=== PATIENT | female | born 1940 | race Caucasian/White ===

== ENCOUNTER 2019-07-18 16:04 | Outpatient (CLI) | payer MEDICARE, SELFPAY ==
--- NOTE | ~2019-07-18 | XR_ITS ---
EXAMINATION: XR chest 2V EXAM DATE: 07/18/2019 16:53 INDICATION: Chest heaviness, shortness of breath, congestion. Symptoms 2 months. TECHNIQUE: Frontal and lateral projections of the chest obtained and reviewed. Comparison is made to prior examination from 12/05/2012. FINDINGS: Severe chronic hyperinflation. Mild thoracic dextroscoliosis. No confluent consolidation, pneumothorax or pleural effusion suspected. There is aortic arterial sclerosis. IMPRESSION: Hyperinflation Reviewed, dictated and finalized at location A. IMPRESSION: Hyperinflation
== END 2019-07-18 16:05 | disposition home or self-care (01) ==
LOC: ANHIMG 16:13
PROVIDERS: PCP Family Medicine; Visit Provider Family Medicine
DX: R07.9 Chest pain, unspecified (principal)
CPT/HCPCS: 71046

== ENCOUNTER → 2020-04-16 13:18 | Outpatient (CLI) | payer MEDICARE, SELFPAY ==
--- NOTE | ~2020-04-16 | MM_ITS ---
EXAMINATION: MM screening [facility] BI w roderick HISTORY: Screening mammogram TECHNIQUE: Craniocaudal and mediolateral oblique 3-D tomosynthesis images were obtained and synthetic 2-D images were generated. CAD analysis was submitted and interpreted. COMPARISON: 05/09/2013, 01/03/2007 BREAST PARENCHYMAL COMPOSITION: There are scattered areas of fibroglandular density. FINDINGS: A stable intramammary lymph node is noted in the upper outer quadrant of the left breast. T here is no evidence of suspicious mass, calcification, or architectural distortion to suggest maligna ncy in either breast. There has been no suspicious interval change. IMPRESSION: 1. No mammographic evidence of malignancy. 2. Recommend routine screening mammography while the patient remains in good health. BI-RADS Category 2: Benign finding(s). Reviewed, dictated and finalized at location A. CASTER IMPRESSION: 1. No mammographic evidence of malignancy. 2. Recommend routine screening mammography while the patient remains in good he alth. BI-RADS Category 2: Benign finding(s).
--- NOTE | ~2020-04-16 | DEXA_ITS ---
Bone Density Report Name: Chikis Deal Age: 80 Sex: Female Ethnicity: White Date of : 1940 Indication: osteopenia; parental hip fracture; height loss; postmenopausal Referring Provider: HILARIO GARCIA Study: Bone densitometry was performed. Exam Date: April 16, 2020 Accession number: [id number] Bone Density: Region BMD T-score Z-score Classification AP Spine (L1-L4) 0.752 -2.7 0.0 Osteoporosis Femoral Neck (Left) 0.624 -2.0 0.3 Osteopenia Total Hip (Left) 0.868 -0.6 1.5 Normal Femoral Neck (Right) 0.631 -2.0 0.4 Osteopenia Total Hip (Right) 0.894 -0.4 1.7 Normal Total Hip Mean 0.881 -0.5 1.6 Normal World Health Organization criteria for BMD impression classify patients as: Normal (T-score at or above -1.0), Osteopenia (T-score between -1.0 and -2.5), or Osteoporosis (T-score at or below -2.5). 10-year Fracture Risk: FRAX not reported because: Some T-score for Spine Total or Hip Total or Femoral Neck at or below -2.5 Previous Exams: Region Exam Age BMD T-score BMD Change BMD Change Date g/cm2 vs Baseline vs Previous AP Spine(L1-L4) 04/16/2020 80 0.752 -2.7 -0.038* -0.038* 01/03/2007 66 0.789 -2.3 Total Hip(Left) 04/16/2020 80 0.868 -0.6 -0.038* -0.038* 01/03/2007 66 0.906 -0.3 Total Hip(Right) 04/16/2020 80 0.894 -0.4 0.003 0.003 01/03/2007 66 0.891 -0.4 *Denotes significance at 95% confidence level, LSC for AP Spine = 0.022 g/cm2, LSC for Total Hip = 0.027 g/cm2 Clinical Information Provided by Patient: Parent has had a hip fracture Has used the following medications: Vitamin D, MTV Patient maximum height was 69 Menopause Age: 49 No regular weight bearing exercise Drinks caffeinated beverages Onset of menses at age 15 Number of children 3 Impression: The patient has osteoporosis, based on the Total Spine T-score. The patient has risk factors, including: parental hip fracture. The BMD for the AP Spine(L1-L4) decreased, changing by -0.038 since the last DXA exam. The BMD for the Total Hip(Left) decreased, changing by -0.038 since the last DXA exam. Discussion: INCREASED RISK OF FRACTURE. BONE DENSITY IS UNDESIRABLY LOW AT ONE OR MORE SKELETAL SITES, CONSISTENT WITH POSTMENOPAUSAL OSTEOPOROSIS. This patient's lowest T-score meets the World Health Organization's (WHO) criteria for osteoporosis at one or more sites (T-score -2.5 or below). In untreated p
== END ==
PROVIDERS: PCP Family Medicine; Visit Provider Obstetrics & Gynecology Gynecology
DX: Z12.31 Encounter for screening mammogram for malignant neoplasm of breast (principal); Z78.0 Asymptomatic menopausal state; M81.0 Age-related osteoporosis without current pathological fracture; M85.852 Other specified disorders of bone density and structure, left thigh; M85.851 Other specified disorders of bone density and structure, right thigh
CPT/HCPCS: 77063; 77067; 77080

== ENCOUNTER → 2020-08-20 10:03 | Outpatient (CLI) | payer MEDICARE, SELFPAY ==
--- NOTE | ~2020-08-20 | XR_ITS ---
EXAMINATION: XR knee RT 3V DATE: 08/20/2020 10:30 INDICATION: Right knee pain. TECHNIQUE: 3 views of right knee were obtained. COMPARISON: None. FINDINGS: Bone alignment is normal. No fracture. There is mild tricompartmental osteoarthritis. There is a small knee joint effusion. IMPRESSION: 1. Mild right knee osteoarthritis. 2. Small right knee joint effusion. Reviewed, dictated and finalized at location A.
== END ==
PROVIDERS: Visit Provider Nurse Practitioner Family
DX: M17.11 Unilateral primary osteoarthritis, right knee (principal); M25.461 Effusion, right knee
CPT/HCPCS: 73562

== ENCOUNTER → 2021-04-24 10:59 | Outpatient (CLI) | payer MEDICARE, SELFPAY ==
--- NOTE | ~2021-04-24 | MM_ITS ---
EXAMINATION: MM screening [facility] BI w roderick HISTORY: Screening mammogram TECHNIQUE: Craniocaudal and mediolateral oblique 3-D tomosynthesis images were obtained and synthetic 2-D images were generated. CAD analysis was submitted and interpreted. COMPARISON: 04/16/2020, 05/09/2013, 01/03/2007 BREAST PARENCHYMAL COMPOSITION: There are scattered areas of fibroglandular density. FINDINGS: There is no evidence of suspicious mass, calcification, or architectural distortion to sugg est malignancy in either breast. There has been no suspicious interval change. IMPRESSION: 1. No mammographic evidence of malignancy. 2. Recommend routine screening mammography while the patient remains in good health. BI-RADS Category 1: Negative Reviewed, dictated and finalized at location A. [employer] IMPRESSION: 1. No mammographic evidence of malignancy. 2. Recommend routine screening mammography while the patient remains in good he alth. BI-RADS Category 1: Negative
== END ==
PROVIDERS: PCP Family Medicine; Visit Provider Obstetrics & Gynecology Gynecology
DX: Z12.31 Encounter for screening mammogram for malignant neoplasm of breast (principal)
CPT/HCPCS: 77063; 77067

== ENCOUNTER 2021-07-22 15:36 | Emergency (ER) | payer MEDICARE, SELFPAY ==
--- NOTE | ~2021-07-22 | XR_ITS ---
XR chest 2V DATE: 07/22/2021 16:06 INDICATION: Dizziness TECHNIQUE: PA and lateral views COMPARISON: 07/18/2019 PA and lateral chest FINDINGS: Bilateral hyperinflation. No pulmonary infiltrate or consolidation, pleural effusion or pul monary vascular congestion or pneumothorax. Heart size is within normal limits. Mild aortic arch calcification, mild aortic tortuosity. No hilar or mediastinal enlargement. Diffuse osteopenia. Thoracic scoliosis. IMPRESSION: No active cardiopulmonary disease Reviewed, dictated and finalized at location B.
[2021-07-22 15:47] VITALS: BP 185/88; PULSE 65; RESP 19; TEMP 36.9; O2SAT 98
--- NOTE | 2021-07-22 15:47 | ECG_ITS ---
Measurements Intervals [place] Rate: 59 P: 42 MA: 168 QRS: -27 QRSD: 97 T: 1 QT: 403 QTc: 400 Interpretive Statements SINUS BRADYCARDIA VOLTAGE CRITERIA FOR LVH BORDERLINE R WAVE PROGRESSION, ANTERIOR LEADS BORDERLINE ECG Electronically Signed On 07-22-2021 16:34:44 CDT by Yg Pantoja D.O.
--- NOTE | 2021-07-22 15:49 | ED.RECABL ---
HPI - Recheck/Abnormal Lab/Rx General Chief Complaint: Recheck/Abnormal Lab/Rx Stated Complaint: A-fib Time Seen by Provider: 07/22/21 15:41 Source: patient History of Present Illness HPI narrative: Patient presents with not feeling well. Reports she has been not feeling well since Wednesday short she has had increasing episodes of rapid heart rate due to her A. fib. When she gets a dizzy sensation and shortness of breath she has been using some home breathing exercises to slow her heart rate which has been effective. However she is continued did not feel well and her symptoms persisted today so she came to the ER for further evaluation. She reports her heart rate was 166 prior to come to the ER. She does not feel palpitations now but she still feels dizzy like she is having an abnormal heart rate. Reports over the past couple days she is noted night sweats denies any fevers denies any abdominal pain chest pain nausea vomiting cough or congestion Related Data Home Medications Medication Instructions Recorded Confirmed denosumab 60 mg/mL subcutaneous 60 mg SUBCUT [id number] 10/15/20 04/22/21 syringe Allergies Allergy/AdvReac Type Severity Reaction Status Date / Time codeine AdvReac Mild NAUSEA/DIZZ Verified 04/22/21 08:26 INESS Review of Systems Review of Systems: CONSTITUTIONAL: Denies fever, chills. EYES: Denies visual changes, redness, or discharge. ENT: Denies rhinorrhea, congestion, sore throat, or otalgia. CARDIOVASCULAR: Denies chest pain, palpitations, or edema. RESPIRATORY: Denies cough or dyspnea. GASTROINTESTINAL: Denies abdominal pain, nausea, vomiting, or diarrhea. GENITOURINARY: Denies dysuria or hematuria. SKIN: Denies rash or itching. MUSCULOSKELETAL: Denies back pain, joint pain, or myalgia. NEUROLOGIC: Denies headache, numbness, or focal weakness. PSYCHIATRIC: Denies anxiety or depression. 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 HEAD: Normocephalic, atraumatic. EYES: PERRLA and EOMI. ENT: Nares clear, no rhinorrhea or epistaxis. Mucous membranes moist. NECK: Supple. No masses. No JVD CHEST: Clear to auscultation. No respiratory distress. No wheezes rales or rhonchi HEART: Regular rate and rhythm. No murmur heard. Normal peripheral pulses. ABDOMEN: Soft, nontender, nondistended, normal active bowel sounds. EXTREMITIES: Normal range of motion. No edema. SKIN: Warm, dry, no rash. NEURO: No focal deficits. Alert and oriented x3. PSYCH: Normal mood and affect. Course Reevaluation(s) Reevaluation #1: Patient is feeling improved results and plan reviewed with patient. Patient comfortable outpatient plan. Case also cussed with Dr. Yancey cardiology recommended increasing metoprolol given patient's recurrent A. fib with RVR episodes and patient will follow-up in their clinic. Date: 07/22/21 Time: 18:06 Vital Signs Vital signs:
[2021-07-22 16:01] LABS: Basophils Percent Auto 0.4 % (0.2-1.2); Eosinophils Absolute Auto 0.1 K/mm3 (0-0.3); Eosinophils Percent Auto 1.5 % (0-4.4); Hematocrit 40.2 % (37.0-47.0); Immature Granulocyte Absolute 0.02 K/mm3 (0.00-0.031); Immature Granulocyte Percent A 0.3 % (0-0.5); Lymphocytes Absolute Auto 3.45 K/mm3 (0.9-3.2); Lymphocytes Percent Auto 47.3 % (18.3-44.2); Mean Corpuscular HGB Conc 34.8 g/dl (32-36); Mean Corpuscular Hemoglobin 32.6 pg (26-34); Mean Corpuscular Volume 93.5 fl (80-100); Monocytes Absolute Auto 0.4 K/mm3 (0.1-0.6); Monocytes Percent Auto 5.8 % (2.6-8.5); Neutrophils Absolute Auto 3.3 K/mm3 (1.3-6.7); Neutrophils Percent Auto 44.7 % (45.5-73.1); Platelet Count Result 241 k/mm3 (150-375); Red Cell Distribution Width 12.1 % (11.5-14.5); White Blood Count 7.3 K/mm3 (4.5-10.0)
--- NOTE | 2021-07-22 16:03 | PC.NURSE ---
Pt taken to X-Ray at this time.
[2021-07-22 16:13] LABS: Alanine Aminotransferase 12 U/L (6-35); Albumin Level 4.4 g/dL (3.5-5.1); Alkaline Phosphatase 33 U/L (38-126); Anion Gap 8 mmol/L (8-16); Aspartate Amino Transferase 28 U/L (14-36); Bilirubin,Total 0.9 mg/dL (0.2-1.3); Blood Urea Nitrogen 14 mg/dL (7-17); Calcium 9.1 mg/dL (8.4-10.2); Carbon Dioxide 24 mmol/L (22-30); Chloride 106 mmol/L (98-107); Estimated CRCL calculation 59 ml/min; Estimated Glomerular Filt Rate > 60; Glucose 91 mg/dL (65-110); Potassium 4.2 mmol/L (3.4-5.0); Sodium 138 mmol/L (137-145)
[2021-07-22 16:29] LABS: Glucose Point of Care 103 mg/dl (65-105)
[2021-07-22 17:11] LABS: SARS-CoV-2 RNA PCR Negative
[2021-07-22 17:21] LABS: Appearance Urine Clear (Clear); Bilirubin Urine Negative (Negative); Blood Urine Trace-lysed (Negative); Color Urine Yellow (Yellow); Glucose Urine UA Negative (Negative); Ketones Urine Negative (Negative); Leukocyte Esterase Ur Negative LEU/UL (Negative); Nitrate Urine Negative (Negative); Protein Urine Negative (Negative); Specific Grav Ur 1.015 (1.001-1.035); Urobilinogen Urine 0.2 mg/dL (<2.0)
[2021-07-22 17:23] LABS: Bacteria Urine Trace /hpf; WBC Urine 0-3 /hpf
[2021-07-22 17:33] LABS: Add Urine Microscopic? YES
[2021-07-22] MEDS: ACETAMINOPHEN 500 MG TABLET 1000 MG PO (18:05)
[2021-07-22 18:36] VITALS: BP 148/85; PULSE 60; RESP 20; O2SAT 98
== END 2021-07-22 18:30 | disposition home or self-care (01) ==
PROVIDERS: Emergency Provider Emergency Medicine; PCP Family Medicine
DX: R00.2 Palpitations (principal); R51.9 Headache, unspecified; Z20.822 Contact with and (suspected) exposure to COVID-19; I48.91 Unspecified atrial fibrillation; F17.210 Nicotine dependence, cigarettes, uncomplicated; Z79.01 Long term (current) use of anticoagulants; R00.1 Bradycardia, unspecified; R94.31 Abnormal electrocardiogram [ECG] [EKG]
CPT/HCPCS: 36415; 71046; 80053; 81001; 82948; 85025; 93005; 99284; A9270; C9803; U0003; U0005

== ENCOUNTER 2021-08-10 17:44 | Observation (INO) | payer MEDICARE, SELFPAY ==
[2021-08-10] VITALS (23 sets, daily range): BP systolic 120–158; BP diastolic 66–123; PULSE 85–145; RESP 15–26; TEMP 36.3–36.4; O2SAT 91–98; BMI 27.2
--- NOTE | ~2021-08-10 | XR_ITS ---
EXAMINATION: XR chest 2V 08/10/2021 18:24 INDICATION: Diaphoresis. Tachycardia. Syncope. COPD. PROCEDURE: AP portable chest COMPARISON: Comparison to multiple prior studies sequentially, with oldest reviewed study dated 10/03. FINDINGS: The lungs are clear. The lungs are hyperinflated which is consistent with, but not diagnost ic of chronic obstructive pulmonary disease. The cardiomediastinal silhouette is within normal limits . There are no pleural effusions. There is no pneumothorax suspected. There is atherosclerosis of the aorta. IMPRESSION: 1: NO ACUTE CARDIOPULMONARY DISEASE. Reviewed, dictated and finalized at location A.
--- NOTE | 2021-08-10 17:53 | ECG_ITS ---
Measurements Intervals [place] Rate: 144 P: 239 VT: 86 QRS: -44 QRSD: 99 T: 98 QT: 292 QTc: 453 Interpretive Statements ATRIAL FLUTTER/TACHYCARDIA WITH RAPID VENTRICULAR RESPONSE LEFT AXIS DEVIATION LEFT VENTRICULAR HYPERTROPHY AND ST-T CHANGE BORDERLINE R WAVE PROGRESSION, ANTERIOR LEADS ST-T WAVE ABNORMALITY IN HIGH LATERAL LEADS- CONSIDER ISCHEMIA BASELINE ARTIFACT- II, III ABNORMAL ECG Electronically Signed On 08-10-2021 20:26:27 CDT by Yg Pantoja D.O.
[2021-08-10] MEDS: METOPROLOL TARTRATE INJ 5 MG/5 ML VIAL IV PUSH (18:07)
[2021-08-10 18:08] LABS: Basophils Absolute Auto 0.1 K/mm3 (0.0-0.1); Basophils Percent Auto 0.6 % (0.2-1.2); Eosinophils Absolute Auto 0.1 K/mm3 (0-0.3); Eosinophils Percent Auto 1.1 % (0-4.4); Hemoglobin 14.5 g/dL (12.0-15.0); Immature Granulocyte Absolute 0.02 K/mm3 (0.00-0.031); Immature Granulocyte Percent A 0.2 % (0-0.5); Lymphocytes Absolute Auto 4.38 K/mm3 (0.9-3.2); Lymphocytes Percent Auto 50.1 % (18.3-44.2); Mean Corpuscular HGB Conc 33.7 g/dl (32-36); Mean Corpuscular Hemoglobin 32.4 pg (26-34); Mean Corpuscular Volume 96.2 fl (80-100); Mean Platelet Volume 9.2 fl (7.4-10.4); Monocytes Absolute Auto 0.7 K/mm3 (0.1-0.6); Monocytes Percent Auto 7.9 % (2.6-8.5); Neutrophils Absolute Auto 3.5 K/mm3 (1.3-6.7); Neutrophils Percent Auto 40.1 % (45.5-73.1); Platelet Count Result 247 k/mm3 (150-375); Red Blood Count 4.47 M/mm3 (4.2-5.4); Red Cell Distribution Width 12.5 % (11.5-14.5); White Blood Count 8.8 K/mm3 (4.5-10.0)
--- NOTE | 2021-08-10 18:11 | PC.NURSE ---
Lab called to add TSH to bloodwork in lab
--- NOTE | 2021-08-10 18:17 | ED.ARRPALP ---
HPI - Arrhythmia/Palpitations General Chief Complaint: Arrhythmia/Palpitations Stated Complaint: palpations Time Seen by Provider: 08/10/21 18:12 History of Present Illness HPI narrative: 81-year-old female presenting with lightheadedness and feeling like she might pass out, she has been diagnosed with A. fib about a year ago and her doctors have been titrating her metoprolol, she had just been told to decrease her dose. She denies any chest pain, difficulty breathing, does have a mild headache. No focal numbness or weakness. Related Data Home Medications Medication Instructions Recorded Confirmed denosumab 60 mg/mL subcutaneous 60 mg subcut [id number] 10/15/20 04/22/21 syringe (Prolia) Allergies Allergy/AdvReac Type Severity Reaction Status Date / Time codeine AdvReac Mild NAUSEA/DIZZ Verified 04/22/21 08:26 INESS Review of Systems Review of Systems: CONST: No fever. HEENT: No sore throat C/V: No chest pain but sometimes has a feeling of palpitations RESP: No difficulty breathing GI: No nausea or vomiting : No dysuria. M/S: No joint pain. SKIN: No rash. 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 EYES: EOMI, conjunctiva normal ENT: Hearing grossly intact LUNGS: Nonlabored breathing. HEART: Irregularly irregular and tachycardic ABD: No distention EXT: Normal range of motion SKIN: [No rashes or lesions.] NEURO: [Alert and oriented x 3. No gross focal sensory or strength deficits.] PSYCH: Normal affect Course Vital Signs Vital signs: Vital Signs Temperature 97.3 F L 08/10/21 17:47 Pulse Rate 134 H 08/10/21 17:47 Respiratory Rate 18 08/10/21 17:47 Blood Pressure 129/92 H 08/10/21 17:47 Pulse Oximetry 97 08/10/21 17:47 Oxygen Delivery Room Air 08/10/21 17:47 Temperature 97.3 F L 08/10/21 17:47 Pulse Rate 123 H 08/10/21 18:51 Respiratory Rate 18 08/10/21 18:01 Blood Pressure 152/119 H 08/10/21 18:01 Pulse Oximetry 94 08/10/21 18:01 Oxygen Delivery Room Air 08/10/21 17:47 MDM - Arrhythmia/Palpitations MDM Narrative Medical decision making narrative: 81-year-old female presenting with feeling of unwellness, vital signs normal for tachycardia, she is tachycardic on exam with irregularly irregular rhythm, does have A. fib with RVR on EKG, I suspect this is the likely cause, will also consider ACS/[place], much less likely PE without any chest pain or difficulty breathing. Suspect RVR possibly from dehydration versus medication dosage decreased. Patient is given IV metoprolol and oral metoprolol, as well as IV fluids with improvement of her heart rate to around 100 when she is sitting at rest, she is no longer having any symptoms, however when she becomes agitated such as talk about insurance companies, her heart rate does
[2021-08-10 18:18] LABS: Alanine Aminotransferase 14 U/L (6-35); Albumin Level 4.6 g/dL (3.5-5.1); Alkaline Phosphatase 40 U/L (38-126); Anion Gap 8 mmol/L (8-16); Aspartate Amino Transferase 27 U/L (14-36); Bilirubin,Total 0.7 mg/dL (0.2-1.3); Blood Urea Nitrogen 22 mg/dL (7-17); Calcium 9.5 mg/dL (8.4-10.2); Carbon Dioxide 25 mmol/L (22-30); Chloride 107 mmol/L (98-107); Estimated CRCL calculation 54 ml/min; Estimated Glomerular Filt Rate > 60; Glucose 102 mg/dL (65-110); Lipase 159 U/L (23-300); Sodium 140 mmol/L (137-145)
[2021-08-10 18:19] LABS: INR 1.1
[2021-08-10 18:20] LABS: Partial Thromboplastin Time 30.2 SECONDS (22.3-36.8)
[2021-08-10 18:29] LABS: Troponin I < 0.012 ng/mL (0.000-0.034)
[2021-08-10] MEDS: METOPROLOL TARTRATE 50 MG TAB PO (18:51)
[2021-08-10] MEDS: LACTATED RINGERS 1,000 ML 999 ML IV CONT (19:50)
--- NOTE | 2021-08-10 20:02 | PM.IMHP ---
H&P: HPI History of Present Illness Date/Time: 08/10/21 20:02 Chief Complaint: Fast heart rate, almost passed out Narrative: 81-year-old female with past medical history COPD, hypothyroidism, hypertension, dyslipidemia, urge urinary incontinence and bladder prolapse who presented to the ER with fast heart rate and near syncope. The patient reports that she has had intermittent issues with AFib RVR for the last year. Her last episode was earlier this month when she came to the ER in her metoprolol at that time was increased to 50 mg q.12 hours on July 22. However, she was feeling extremely fatigued all the time and she contact the nurse practitioner at the information systems security analyst office and her morning metoprolol was decreased back down to 25 mg last week. She states that she was doing good until earlier today when she was visiting family in [place] at which time she began feeling palpitations. She checked her heart rate on monitor and her heart rate was ranging anywhere from 150 down to 35. She reported that when her heart rate was at its highest she did feel almost as if she was going to pass out. She reported that things started to get dark. They decided at that time to drive back from [place]. She did have a couple of episodes of feeling clammy and sweaty. She reports some chronic shortness of breath due to her history of COPD. She denies any increased shortness of breath from baseline. She has not had any changes in her chronic cough. She states that she started having a cough ever she was placed on oxybutynin. She also developed new the GERD at that time. She reports that she gets GERD frequently when she lays down and has a burning sensation in her chest and up into her throat. Her nonproductive cough seemed to worsen at that time as well. But has remained stable. She denies any chest pain. She denies any orthopnea or paroxysmal nocturnal dyspnea. She has received her COVID vaccines and 1 booster. She is due for her next booster. She denies any recent ill contacts. She has been taking her metoprolol as directed 25 in the morning and 50 at night. She continues on her home Eliquis. She has chronic urinary frequency. She reports that the oxybutynin did did help with some of her nocturia. But she still has bladder prolapse and often has to push her bladder back in. Her completion manager has discussed a pessary with her. The patient thinks that she is going to proceed with a pessary in the near future so that she can get off the oxybutynin. Patient does not want any medications added for her heartburn. Review of Systems Review of Systems: 12 systems were reviewed with pertinent positives and negatives per HPI. Except as documented in the HPI, all other systems were reviewed and are negative. [facility] Past Medical History Medical History (Updated 08/10/21 @ 23:20 by Jocelyne Valdez DO) Cataract of right eye Maturing Chronic diastolic heart failure Last outpatient echo EF 60-65%, mild concentric left ventricular hypertrophy, impaired diastolic relaxation grade 1, mild mitral valve regurgitation, mild tricuspid regurgitation mild pulmonary regurgitation Essential hypertension Hyperlipidemia Hypothyroidism Paroxysmal atrial fibrillation Urge urinary incontinence Surgical History Surgical History (Updated 08/10/21 @ 23:20 by Joeclyne Valdez DO) History of appendectomy (~1984) History of bladder suspension procedure (~1984) History of bunionectomy of left great toe Family History Family History Father Heart disease Mother Emphysema of lung Sibling Ovarian cancer Carcinoma of colon Sibling Diabetes mellitus Bone cancer Daughter Lung cancer Daughter Cancer, metastatic Social History Social History (Updated 08/10/21 @ 23:28 by Jocelyne Valdez DO) Social History: The patient is independent activities of daily living. She is m
--- NOTE | 2021-08-10 21:06 | PC.NURSE ---
Patient care report called to CHARLES Jean in IMU. All questions answered at this time.
--- NOTE | 2021-08-10 21:28 | ADMGEN ---
This patient, Chikis Deal, was admitted to IMU Room 200-01 on 08/10/21 at 2128. Patient/family oriented to hospital policies and general routines including ID bracelet, bed and alarms, visiting hours, pain management, procedures, bathroom and other care routines, personal items, smoking policy, room service/diet, and visiting hours. Information on how to activate the Rapid Response Team has been discussed. Patient/Family are encouraged to report perceived risks to care and to ask questions if they do not understand what they are told or what they should do.
[2021-08-10 22:14] LABS: Troponin I < 0.012 ng/mL (0.000-0.034)
[2021-08-11] VITALS (11 sets, daily range): BP systolic 96–139; BP diastolic 61–69; PULSE 58–88; RESP 16–20; TEMP 36.5–37; O2SAT 95–100
[2021-08-11] MEDS: lisinopriL 10 MG TABLET PO (00:04)
[2021-08-11] MEDS: PRAVASTATIN SODIUM 20 MG TABLET PO (00:04)
[2021-08-11] MEDS: APIXABAN 5 MG TABLET PO ×2 (00:04→08:40)
[2021-08-11 00:14] LABS: Troponin I < 0.012 ng/mL (0.000-0.034)
--- NOTE | 2021-08-11 04:41 | ECG_ITS ---
Measurements Intervals [place] Rate: 60 P: 50 AL: 172 QRS: -26 QRSD: 83 T: 10 QT: 402 QTc: 404 Interpretive Statements SINUS RHYTHM DELAYED PRECORDIAL R/S TRANSITION BORDERLINE ST-T WAVE ABNORMALITY- INFERIOR LEADS BORDERLINE ECG Electronically Signed On 08-11-2021 14:05:16 CDT by Yg Pantoja D.O.
[2021-08-11] MEDS: LEVOTHYROXINE SODIUM 25 MCG TABLET PO (05:51)
[2021-08-11] MEDS: METOPROLOL TARTRATE 50 MG TAB PO (08:40)
--- NOTE | 2021-08-11 08:45 | PM.DS ---
DS: Admitting Diagnosis Discharge Date 08/11/21 0845 Admitting Diagnosis AFib RVR DS: Discharge Diagnosis Discharge Diagnosis (1) Atrial fibrillation with rapid ventricular response: Code(s): I48.91 - Unspecified atrial fibrillation Status: Acute Assessment and Plan: - The patient received 1 dose of IV Lopressor in the ER and 1 p.o. dose of 50 mg. Her heart rate for the most part his stay in the 90s to low 100s with occasional jumping up to the 110s- 120s with activity. - Although the patient stated that her pulse ox demonstrated a heart rate down at 35 at home she has had no bradycardic episodes since arrival. suspect this may have been inaccurate reading her pulse oximeter. Patient is being monitored in the IMU on telemetry. - Cardiology has been consulted for further recommendations. -The patient remains on her home Eliquis. Patient will DC back home on 50 mg of p.o. metoprolol b.i.d. DS: Summary Hospital Course Hospital Course: Patient is an 81-year-old female with a past medical history of AFib, hypertension, hyperlipidemia who presented to the ED with complaints of elevated heart rate and near-syncope. Patient stated that she knows when her heart goes into a different rhythm because she gets nauseated along with sweats and palpitations. Patient was given IV Lopressor in the ED and she converted back to sinus rhythm. Patient was admitted to IMU and was on alarm security or surveillance monitor throughout the night. Patient did state that she had recently had her medications changed due to fatigue. Cardiology was consulted and adjusted her dose back to 50 p.o. b.i.d.. Patient does follow with Dr. Guzman. Electrolytes are stable. Patient denies any symptoms at this time including chest pain, shortness of breath, nausea, vomiting, diarrhea, constipation, weakness or fatigue. Patient has been up walking around and feels great. Patient is stable for discharge per labs and vital signs. Status at Discharge Functional status at discharge: independent ambulation Overall status at discharge: patient is progressing back to baseline Time Spent with Patient Time attestation: Total time spent providing and/or coordinating discharge services: 33 minutes Time spent: Greater than 30 minutes Specific discharge activities: Diagnostic testing, chart review, developing a treatment plan, education, care coordination documentation, physical exam, result review Exam Const: General: cooperative, healthy appearing, no acute distress, well developed, alert and awake Nutritional Appearance: well nourished Orientation/consciousness: patient oriented x3 Limitations: no limitations HENMT: Head: normal to inspection Ears: hearing grossly normal bilaterally General nose exam: Normal external nose present Mouth: Yes Normal oral and palatal mucosa present, Yes lip normal and Yes tongue normal Teeth and gingiva: abnormal tooth and associated gingiva and poor dentition Eyes: General: appearance normal, both eyes and all related structures Neck: Neck: normal visual inspection, full ROM, trachea midline and supple Chest: Chest palpation & inspection: normal inspection of the chest Resp: Effort & Inspection: normal respiratory effort and able to speak in complete sentences Auscultation: clear to auscultation bilaterally Cardio: Jugular venous distension: no JVD Rate: regular rate Rhythm: regular rhythm Heart sounds: S1 normal heart sound present and S2 normal heart sound present Peripheral pulses: Peripheral pulses 2+ throughout GI: Inspection: normal to inspection GI Palp: Yes Soft to palpation and No Tenderness to palpation present (GI) Auscultation: normal bowel sounds Skin: General skin exam: normal color and no rashes or lesions noted Lesions: no lesions Rashes: no rashes Trauma: no lacerations or abrasions Wounds: no wounds Hair: normal Nails: normal Neuro: General: patient oriented x3, moves all extremities and Normal light touch and pain s
--- NOTE | 2021-08-11 09:49 | PM.CNCAR ---
Assessment and Plan Assessment and plan (1) Atrial fibrillation with rapid ventricular response: Code(s): I48.91 - Unspecified atrial fibrillation Status: Acute Assessment and Plan: Symptomatic paroxysmal atrial fibrillation with rapid ventricular response converted to sinus rhythm on metoprolol. Patient reports fatigue with metoprolol 50 mg twice daily she believes. Very lengthy discussion held with regards to alternative management strategies however rhythm control clearly should be our focus as she tolerates atrial fibrillation poorly. Discussed many options including antiarrhythmics, escalation of beta-janel, alternatives such as calcium channel janel and the relative risks and benefits with medications such as amiodarone, dronedarone, sotalol, digoxin, etc.. Patient verbalized understanding but states she did not feel like dealing with potential risks associated antiarrhythmic therapy this time nor did she desire a complete rebound put her medications. She agreed to increase metoprolol back to 50 mg twice daily and observe tolerance and potentially increase her evening metoprolol 75 mg certainly she has any recurrent atrial fibrillation. We discussed she may take an additional metoprolol should she have recurrence of AFib and observe tolerance as appropriate. She will call the office tomorrow morning set up follow-up very soon with Dr. Guzman or Dianna De La Vega, MANDEEP for further discussion based on her tolerance of present dose of metoprolol and or AFib recurrence. All questions answered to her satisfaction. Patient stable for discharge home as she is asymptomatic in sinus rhythm. We agreed additional adjustments in her medical therapy we are anticipated but are compromise was to discharge home on metoprolol tartrate 50 mg twice daily. We also discussed transition to Toprol XL which she may tolerate better although there was no guarantee in this regard. Discussed preference for shorter acting beta blockers particularly if adjustment is needed yet of tolerance a concern this is a potential consideration. Spent 55 minutes in the care of this patient at bedside including counseling/discussions, examination, chart review, medical decision-making, and documentation. (2) Chronic diastolic heart failure: Code(s): I50.32 - Chronic diastolic (congestive) heart failure Status: Acute Assessment and Plan: In patient's record, because patient denies prior known history of diagnosis of heart failure and is not currently on diuretic therapy. She is not decompensated heart failure at this time. (3) Chronic anticoagulation: Code(s): Z79.01 - extruder (current) use of anticoagulants Status: Acute Assessment and Plan: Continue systemic anticoagulation without interruption. (4) Essential hypertension: Code(s): I10 - Essential (primary) hypertension Status: Acute Assessment and Plan: Controlled. Continue medical therapy. (5) Hypothyroidism: Qualifiers: Hypothyroidism type: unspecified Qualified Code(s): E03.9 - Hypothyroidism, unspecified Code(s): E03.9 - Hypothyroidism, unspecified Status: Acute Assessment and Plan: Continue levothyroxine. TSH within normal limits. Management per primary service. History of Present Illness History of Present Illness Consult date/time: Date of service: 08/11/21 09:49 Cardiology consultation at the request of Dr. Nassar for opinion regarding atrial fibrillation with RVR Requesting physician: Yulissa Nassar MD Reason For Visit: AFIB RVR Narrative: Patient is a very pleasant 81-year-old female with a past medical history significant for hypertension, COPD, hypothyroidism, dyslipidemia and paroxysmal atrial fibrillation with rapid ventricular response followed by Dr. Guzman as an outpatient who presented with worsening complaints of palpitations and dizziness along with near-syncope. Patient states ox 1:00 p.m.
[2021-08-11 10:18] LABS: Alanine Aminotransferase 15 U/L (6-35); Alkaline Phosphatase 34 U/L (38-126); Anion Gap 8 mmol/L (8-16); Aspartate Amino Transferase 23 U/L (14-36); Bilirubin,Total 1.2 mg/dL (0.2-1.3); Blood Urea Nitrogen 17 mg/dL (7-17); Carbon Dioxide 24 mmol/L (22-30); Chloride 108 mmol/L (98-107); Estimated CRCL calculation 54 ml/min; Estimated Glomerular Filt Rate > 60; Glucose 167 mg/dL (65-110); Magnesium 1.9 mg/dL (1.6-2.3); Potassium 3.6 mmol/L (3.4-5.0); Sodium 140 mmol/L (137-145)
== END 2021-08-11 13:30 | disposition home or self-care (01) ==
LOC: ANHED 19:35 → ANHIMU 23:08
PROVIDERS: Emergency Medicine; Admitting Provider Internal Medicine; Emergency Provider Emergency Medicine; PCP Family Medicine; Visit Provider Nurse Practitioner
DX: I48.91 Unspecified atrial fibrillation (principal); R55 Syncope and collapse; I11.0 Hypertensive heart disease with heart failure; I50.32 Chronic diastolic (congestive) heart failure; J44.9 Chronic obstructive pulmonary disease, unspecified; N81.10 Cystocele, unspecified; N39.41 Urge incontinence; E03.9 Hypothyroidism, unspecified; E78.5 Hyperlipidemia, unspecified; K21.9 Gastro-esophageal reflux disease without esophagitis; Z79.01 Long term (current) use of anticoagulants; Z87.891 Personal history of nicotine dependence
CPT/HCPCS: 36415; 71046; 80053; 83690; 83735; 84443; 84484; 85025; 85610; 85730; 93005; 96361; 96374; 99285; A9270; G0378; J7120

== ENCOUNTER → 2022-01-20 07:40 | Outpatient (CLI) | payer MEDICARE, SELFPAY ==
--- NOTE | ~2022-01-20 | US_ITS ---
EXAMINATION: US abdomen complete DATE: 01/20/2022 08:33 INDICATION: Right upper quadrant pain TECHNIQUE: Multiple grayscale and Doppler ultrasound images of the abdomen were obtained. COMPARISON: None available FINDINGS: The head and body of the pancreas are normal. The pancreatic tail is obscured by bowel gas. The liver is normal with normal echogenicity and echotexture. No surface nodularity. Normal hepatope nakia flow in the main portal vein. The gallbladder is normal with no abnormal wall thickening, pericho lecystic fluid or stones. The normal common bile duct measures 3 mm. There was no sonographic Del Cid sign. The visualized portions of the aorta and inferior vena cava are normal. The right kidney measures 9.9 x 3.3 x 4.3 cm. The left kidney measures 9.4 x 4.1 x 3.1 cm. The kidney s demonstrate normal parenchymal echogenicity. There is no hydronephrosis. The spleen is normal in ap pearance and measures 10.4 cm. IMPRESSION: 1. No sonographic correlate for the patient's symptoms. Reviewed, dictated and finalized at location B. ISSIONED POLICE OFFICER
== END ==
PROVIDERS: PCP Family Medicine; Visit Provider Physician Assistant Medical
DX: R10.11 Right upper quadrant pain (principal)
CPT/HCPCS: 76700

== ENCOUNTER → 2022-05-26 10:33 | Outpatient (CLI) | payer MEDICARE, SELFPAY ==
--- NOTE | ~2022-05-26 | DEXA_ITS ---
Bone Density Report Name: ROBERT STEPHENS Age: 82 Sex: Female Ethnicity: White Date of : 1940 Indication: postmenopausal osteoporosis; monitoring treatment; parental hip fracture; height loss; Referring Provider: HILARIO GARCIA Study: Bone densitometry was performed. Exam Date: May 26, 2022 Accession number: [id number] Bone Density: Region BMD T-score Z-score Classification AP Spine (L1-L4) 0.830 -2.0 0.8 Osteopenia Femoral Neck (Left) 0.658 -1.7 0.7 Osteopenia Total Hip (Left) 0.901 -0.3 1.9 Normal Femoral Neck (Right) 0.649 -1.8 0.6 Osteopenia Total Hip (Right) 0.922 -0.2 2.1 Normal Total Hip Mean 0.912 -0.3 2.0 Normal World Health Organization criteria for BMD impression classify patients as: Normal (T-score at or above -1.0), Osteopenia (T-score between -1.0 and -2.5), or Osteoporosis (T-score at or below -2.5). 10-year Fracture Risk: FRAX not reported because: Treated for osteoporosis Previous Exams: Region Exam Age BMD T-score BMD Change BMD Change Date g/cm2 vs Baseline vs Previous AP Spine(L1-L4) 05/26/2022 82 0.830 -2.0 0.041* 0.079* 04/16/2020 80 0.752 -2.7 -0.038* -0.038* 01/03/2007 66 0.789 -2.3 Total Hip(Left) 05/26/2022 82 0.901 -0.3 -0.005 0.033* 04/16/2020 80 0.868 -0.6 -0.038* -0.038* 01/03/2007 66 0.906 -0.3 Total Hip(Right) 05/26/2022 82 0.922 -0.2 0.031* 0.028* 04/16/2020 80 0.894 -0.4 0.003 0.003 01/03/2007 66 0.891 -0.4 *Denotes significance at 95% confidence level, LSC for AP Spine = 0.022 g/cm2, LSC for Total Hip = 0.027 g/cm2 Clinical Information Provided by Patient: Parent has had a hip fracture Is being treated for osteoporosis Has used the following medications: Prolia (i.e. denosumab), Vitamin D, MTV Patient maximum height was 69 Menopause Age: 49 No regular weight bearing exercise Drinks caffeinated beverages Onset of menses at age 15 Number of children 3 Impression: The patient has low bone mass, based on the Total Spine T-score. The patient has risk factors, including: parental hip fracture. No significant bone loss was observed. Discussion: PATIENT UNDER TREATMENT WITH NO SIGNIFICANT BMD LOSS SINCE LAST EXAM. In an untreated patient, BMD typically declines with age. A lack of decline or gain is usually a sign that treatment is efficacious and fr
== END ==
PROVIDERS: PCP Family Medicine; Visit Provider Obstetrics & Gynecology Gynecology
DX: Z78.0 Asymptomatic menopausal state (principal); M85.89 Other specified disorders of bone density and structure, multiple sites
CPT/HCPCS: 77080

== ENCOUNTER → 2022-06-17 10:56 | Outpatient (CLI) | payer MEDICARE, SELFPAY ==
--- NOTE | ~2022-06-17 | MM_ITS ---
EXAMINATION: MM screening carine BI w roderick HISTORY: Screening mammogram TECHNIQUE: Craniocaudal and mediolateral oblique 3-D tomosynthesis images were obtained and synthetic 2-D images were generated. CAD analysis was submitted and interpreted. COMPARISON: April 24, 2021, April 16, 2020, May 09, 2013 bilateral screening mammogram exam inations BREAST PARENCHYMAL COMPOSITION: There are scattered areas of fibroglandular density. FINDINGS: There is no evidence of suspicious mass, calcification, or architectural distortion to sugg est malignancy in either breast. There has been no suspicious interval change. IMPRESSION: 1. No mammographic evidence of malignancy. 2. Recommend routine screening mammography in one year. BI-RADS Category 1: Negative Reviewed, dictated and finalized at location A.
== END ==
PROVIDERS: PCP Family Medicine; Visit Provider Obstetrics & Gynecology Gynecology
DX: Z12.31 Encounter for screening mammogram for malignant neoplasm of breast (principal)
CPT/HCPCS: 77063; 77067

== ENCOUNTER 2022-10-09 14:27 | Outpatient (CLI) | payer MEDICARE, SELFPAY ==
--- NOTE | ~2022-10-09 | MR_ITS ---
EXAMINATION: MR brain/brain stem wo/w con DATE: 10/09/2022 15:37 INDICATION: Dizziness and giddiness TECHNIQUE: Magnetic resonance imaging (MRI) of the brain and brainstem was performed without and with 17 mL Multihance intravenous contrast. Sequences included sagittal and axial T1-weighted SE, axial d iffusion-weighted FS SE, axial 3D SWAN, axial T2-weighted FLAIR, and axial T2-weighted FSE. Postcontr ast axial and coronal T1-weighted SE was obtained. Apparent diffusion coefficient (ADC) maps were cre ated. COMPARISON: None. FINDINGS: There are no areas of restricted diffusion to suggest acute infarction. No intracranial hemorrhage or abnormal intracranial mass lesion. Extensive scattered areas of nonspecific increased T2-weighted si gnal intensity in the cerebral white matter, predominantly involving the deep and periventricular whi te matter which is within normal limits for age and likely sequela of chronic small vessel ischemic d isease.. There are no intraparenchymal signal abnormalities seen on the other pulse sequences. The ve ntricles are symmetric and normal in size. There are no abnormal extra-axial fluid collections. Flow voids are seen in the cerebral arteries on the T2-weighted sequences consistent with their expected p atency. Mild mucosal thickening the bilateral ethmoid sinuses. Visualized orbits and soft tissues are unremarkable. There are no areas of abnormal enhancement on the post contrast images. IMPRESSION: 1. No acute intracranial process. 2. Extensive scattered periventricular predominant white matter T2 hyperintensity consistent with chr onic small vessel ischemic disease. Reviewed, dictated and finalized at location A. IMPRESSION: 1. No acute intracranial process. 2. Extensive scattered periventricular predominant white matter T2 hyperintensi ty consistent with chronic small vessel ischemic disease.
== END 2022-10-09 14:28 | disposition home or self-care (01) ==
PROVIDERS: PCP Family Medicine; Visit Provider Physician Assistant Medical
DX: R90.89 Other abnormal findings on diagnostic imaging of central nervous system (principal); R55 Syncope and collapse; I10 Essential (primary) hypertension; R26.89 Other abnormalities of gait and mobility; R42 Dizziness and giddiness
CPT/HCPCS: 70553; A9577

== ENCOUNTER → 2023-05-04 12:49 | Outpatient (CLI) | payer MEDICARE, SELFPAY ==
--- NOTE | ~2023-05-04 | XR_ITS ---
Left Knee Technique: AP and lateral views were obtained. Clinical History: Pain Findings: No fracture or dislocation is seen. Osseous alignment is anatomic. Minimal degenerative spu rring noted. Soft tissues are unremarkable. No joint effusion is seen. Impression: Minimal degenerative spurring. Reviewed, dictated and finalized at [facility]. KOUT SUPERVISOR Impression: Minimal degenerative spurring.
== END ==
PROVIDERS: PCP Nurse Practitioner Family; Visit Provider Nurse Practitioner Family
DX: M25.762 Osteophyte, left knee (principal)
CPT/HCPCS: 73560

== ENCOUNTER 2023-05-04 15:44 | Outpatient (CLI) | payer MEDICARE, SELFPAY ==
--- NOTE | ~2023-05-04 | US_ITS ---
EXAMINATION: US venous doppler [facility] DATE: 05/04/2023 16:37 INDICATION: Lower limb pain and swelling TECHNIQUE: Grayscale ultrasound images without and with compression and Doppler ultrasound images of the bilateral lower extremity veins were obtained. COMPARISON: None. FINDINGS: The visualized portions of right common femoral vein, profunda (deep) femoral vein, femoral vein, pop liteal vein, posterior tibial veins, peroneal veins, gastrocnemius vein and greater saphenous vein ou tflow are patent. The visualized portions of left common femoral vein, profunda femoral vein, femoral vein, popliteal v ein, posterior tibial veins, peroneal veins, gastrocnemius vein and greater saphenous vein outflow ar e patent. IMPRESSION: 1. No deep venous thrombosis in either lower limb. Reviewed, dictated and finalized at location A. ESS AND WELLNESS DIRECTOR
== END 2023-05-04 15:45 | disposition home or self-care (01) ==
LOC: ANHIMG 15:45
PROVIDERS: PCP Nurse Practitioner Family; Visit Provider Nurse Practitioner Family
DX: R60.0 Localized edema (principal)
CPT/HCPCS: 93970

== ENCOUNTER 2023-05-16 09:27 | Outpatient (CLI) | payer MEDICARE, SELFPAY ==
--- NOTE | ~2023-05-16 | MR_ITS ---
EXAMINATION: MR knee LT wo con DATE: 05/16/2023 09:50 INDICATION: Stiffness of unspecified knee, not elsewhere classified. Left knee injury. TECHNIQUE: Magnetic resonance imaging (MRI) of the left knee was performed without intravenous contra st. Sequences included axial PD-weighted FS FSE, coronal PD-weighted FSE and PD-weighted FS FSE, sagi ttal PD-weighted FSE, and sagittal T2-weighted FS FSE. COMPARISON: Left knee radiographs 05/04/2023 FINDINGS: Medial compartment: There is a complex tear of body and posterior horn of medial meniscus. There is full-thickness cartil age loss of tibial condyle involving the medial, central, and lateral articular surface. There is a s ubchondral insufficiency fracture of tibial condyle with subchondral sclerosis and surrounding edema- like marrow signal intensity. There is deep partial thickness cartilage loss of femoral condyle, wors t at the central and medial articular surface with mild subchondral edema-like marrow signal intensit y. Osteophytes are noted. Lateral compartment: There is a complex tear involving body and posterior horn of lateral meniscus. There is partial-thick ness cartilage loss of femoral condyle and tibial condyle, deep at the medial articular surface of ti bial condyle and posterior articular surface of femoral condyle. Osteophytes are noted. Patellofemoral compartment: There is full-thickness cartilage loss of patellar medial facet and median ridge with mild subchondra l edema-like marrow signal intensity. There is partial-thickness cartilage loss of patellar lateral f acet. There is partial-thickness cartilage loss of trochlea. There is full-thickness cartilage loss o f central trochlea. Ligaments and tendons: The anterior and posterior cruciate ligaments are normal. Medial collateral ligament is normal. There are changes of prior sprain of fibular collateral ligament characterized by increased signal intensi ty and thickening proximally. There is mild patellar tendinopathy. Fluid: There is a moderate-sized knee joint effusion. There is moderate prepatellar and superficial infrapat ellar bursitis. There is a large Baptiste's cyst. IMPRESSION: 1. Severe chondrosis of patellofemoral compartments and mild chondrosis of lateral compartment. 2. Subchondral insufficiency fracture of medial tibial condyle. 3. Complex tears of medial and lateral menisci. 4. Moderate-sized knee joint effusion. 5. Large Baptiste's cyst. Reviewed, dictated and finalized at location A. ATION ONCOLOGY NURSE IMPRESSION: 1. Severe chondrosis of patellofemoral compartments and mild chondrosis of late ral compartment. 2. Subchondral insufficiency fracture of medial tibial condyle. 3. Complex tears of medial and lateral menisci. 4. Moderate-sized knee joint effusion. 5. Large Baptiste's cyst.
== END 2023-05-16 09:28 | disposition home or self-care (01) ==
LOC: ANHIMG 09:30
PROVIDERS: PCP Nurse Practitioner Family; Visit Provider Nurse Practitioner Family
DX: M25.662 Stiffness of left knee, not elsewhere classified (principal); M25.462 Effusion, left knee; M94.262 Chondromalacia, left knee; S82.132A Displaced fracture of medial condyle of left tibia, initial encounter for closed fracture; S83.272A Complex tear of lateral meniscus, current injury, left knee, initial encounter; S83.232A Complex tear of medial meniscus, current injury, left knee, initial encounter; M71.22 Synovial cyst of popliteal space [Baker], left knee; X58.XXXA Exposure to other specified factors, initial encounter
CPT/HCPCS: 73721

== ENCOUNTER 2023-07-27 14:08 | Outpatient (CLI) | payer MEDICARE, SELFPAY ==
--- NOTE | ~2023-07-27 | MM_ITS ---
EXAMINATION: MM screening carine BI w roderick HISTORY: Screening mammogram TECHNIQUE: Craniocaudal and mediolateral oblique 3-D tomosynthesis images were obtained and synthetic 2-D images were generated. CAD analysis was submitted and interpreted. COMPARISON: June 17, 2022, April 24, 2021 bilateral screening mammogram examinations BREAST PARENCHYMAL COMPOSITION: There are scattered areas of fibroglandular density. FINDINGS: There is no evidence of suspicious mass, calcification, or architectural distortion to sugg est malignancy in either breast. There has been no suspicious interval change. IMPRESSION: 1. No mammographic evidence of malignancy. 2. Recommend routine screening mammography in one year. BI-RADS Category 1: Negative Reviewed, dictated and finalized at location A.
== END 2023-07-27 14:09 ==
PROVIDERS: PCP Family Medicine; Visit Provider Obstetrics & Gynecology Gynecology
DX: Z12.31 Encounter for screening mammogram for malignant neoplasm of breast (principal)
CPT/HCPCS: 77063; 77067

== ENCOUNTER 2024-01-05 11:20 | Outpatient (CLI) | payer MEDICARE, SELFPAY ==
--- NOTE | ~2024-01-05 | XR_ITS ---
3 VIEWS LUMBAR SPINE Ordering provider: Parker Chen NP History: . M54.30 - Sciatica, unspecified side . Comparison: None. FINDINGS: VERTEBRAL BODIES: Transitional vertebra is noted. Levoscoliosis. No visible fracture or subluxation. Degenerative changes of the spine. DISK SPACES: Narrowing of the disc L3-L4, L4-L5 and L5-S1. Multilevel facet joint disease. SOFT TISSUES: Atherosclerotic changes of the aorta. IMPRESSION: No acute osseous abnormality lumbar spine. Multilevel degenerative disc disease. Reviewed, dictated and finalized at location A.
== END 2024-01-05 11:21 | disposition home or self-care (01) ==
LOC: MICIMG 11:23
DX: M54.30 Sciatica, unspecified side (principal); M51.369 Other intervertebral disc degeneration, lumbar region without mention of lumbar back pain or lower extremity pain
CPT/HCPCS: 72100

== ENCOUNTER 2024-04-26 07:36 | Outpatient (CLI) | payer MEDICARE, SELFPAY ==
--- NOTE | ~2024-04-26 | MR_ITS ---
MRI of the lumbar spine Clinical History: Back pain, right-sided sciatica Technique: Axial T2-weighted images, and sagittal T1-weighted, T2-weighted, and T2 fat-sat images wer e acquired. COMPARISON: 09/02/2015 Findings: No acute fracture seen. There is minimal grade 1 anterolisthesis of L3 over L4. No suspicio us bone marrow signal abnormality seen. At L1-L2, there is no disc bulge or herniation. There is mild facet hypertrophy. No spinal canal sten osis or neural foraminal narrowing. At L2-L3, there is minimal disc bulge with moderate facet arthropathy. No central canal stenosis. The re is mild to moderate bilateral neural foraminal narrowing. At L3-L4, there is diffuse disc bulge with probable disc extrusion extending superiorly. There is sev ere facet arthropathy. There is severe spinal canal stenosis/thecal sac compression. There is moderat e to severe bilateral neural foraminal narrowing, left worse than right. At L4-L5, there is moderate degenerative disc narrowing. Disc bulge and severe facet arthropathy resu lt in severe spinal canal stenosis/thecal sac compression. There is moderate to advanced bilateral ne ural foraminal narrowing, left worse than right. At L5-S1, there is minimal disc bulge with mild facet arthropathy. No central canal stenosis. Neural foramina are preserved. Paravertebral soft tissues are unremarkable.. Impression: Severe degenerative spondylosis at L3-L4 and L4-L5 in particular. Please see details above. Additional mild degenerative changes, as above. Reviewed, dictated and finalized at [facility]. EGNATING HELPER Impression: Severe degenerative spondylosis at L3-L4 and L4-L5 in particular. Please see de tails above. Additional mild degenerative changes, as above.
--- OUTSIDE RECORDS SUMMARY | 2024-04-26 07:41 | XMS_ITS | Clinical Summary ---
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 Gender Identity Not on file Sexual Orientation Not on file Plan of Treatment Health Maintenance Due Date Last Done Comments DEXA Bone Density 1940 Hepatitis C Virus (HCV) Screening 1940 TdaP Immunization 1940 Pneumococcal Immunization (5 0+ years) (1 of 1 - PCV) 1989 Zoster Immunization (1 of 2) 1989 Respiratory Syncytial Virus (RSV) Immunization (Adult) (1 - 1-dose 75+ series) 2014 Influenza Immunization (#1) 2023 102 03/2019, 01/26/2019, 01/05/2017 SARS-COV-2 Immunization ( season) 2023 06/08/2020, 05/16/2020 Hepatitis B Immunization Aged Out No longer eligible based on patient's age to complete this topic Meningococcal Immunization (ACWY) Aged Out No longer eligible b ased on patient's age to complete this topic Rotavirus Immunization Aged Out No lo nger eligible based on patient's age to complete this topic
--- OUTSIDE RECORDS SUMMARY | 2024-04-26 07:41 | XMS_ITS | Referral Summary ---
Author Organization [facility] [address] Address [address] [place] [address] Care Team Providers Care Supervisor Ornamental Ironworking Name Role Phone Christopher Hernández MD Primary Care Provider + [phone] Allergies Active Allergy Reactions Criticality Noted Date Comments Codeine Medications pravastatin (PRAVACHOL) 20 mg tablet take 1 Tablet by oral route every day 0 0 6 Active multivitamin tablet tabletIndicatio ns:Vitamin Deficiency Prevention Take 1 tablet by mouth daily Active levothyroxine (SYNTHROID) 25 mcg tablet Take 1 tablet (25 mcg total) by mouth 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 before 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 [address] (PROTONIX) 40 mg EC tablet TAKE 1 TABLET(40 MG) BY MOUTH DAILY 90 tablet 4 Active apixaban (Eliquis) 5 mg tablet TAKE 1 TABLET(5 MG) BY MOUTH TWICE DAILY 180 tablet 2 4 Active lisinopriL (PRINIVIL,ZESTR IL) 40 mg tablet Take 1 tablet (40 mg total) by mouth nightly 90 tablet 6 4 Active carvediloL (COREG) 6.25 mg tablet Take 1 tablet (6.25 mg total) by mouth 2 (two) times a day with meals 60 tablet 11 4 12/15/19 25 Active flecainide (TAMBOCOR) 50 mg tablet TAKE 1 TABLET(50 MG) BY MOUTH TWICE DAILY 60 tablet 11 4 Active Active Problems No known active problems Social History Tobacco Use Types Packs/Day Years Used Date Smoking Tobacco: Former Cigarettes Smokeless Tobacco: Never Tobacco Cessation:Counseling Given: Not Answered Comments:age of [age] Alcohol Use Standard Drinks/Week Comments No 0 (1 standard drink = 0.6 oz pur e alcohol) Personal Safety Answer Date Recorded Getting School Help Needed Not on file 02/22 Comments Unknown Sex and Gender Information Value Date Recorded Sex Assigned at Not on file 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 Gender Identity Not on file Sexual Orientation Not on file Last Filed Vital Signs Vital Sign Reading Time Taken Comments Blood Pressure 154/70 12/15/2023 10:50 AM CDT Pulse 55 12/15/2023 10:50 AM CDT Temperature 36.4 C (97.5 F) 10/17/2019 9:12 AM CDT Respiratory Rate 15 09/29/2019 10:17 AM CDT Oxygen Saturation 97% 12/15/2023 10:50 AM CDT Inhaled Oxygen Concentration - - Weight 82.6 kg (182 lb) 12/15/2023 10:50 AM CDT Height 172.7 cm (5' 8 ) 12/15/2023 10:50 AM CDT Body Mass Index 27.67 12/15/2023 10:50 AM CDT Plan of Treatment Not on [place] [address] [facility] MEDICARE [facility] Care Teams Supervisor Ornamental Ironworking Relationship Specialty Start Date End Date Christopher Hernández MD PCP - General Family Medicine 08/05/21
--- OUTSIDE RECORDS SUMMARY | 2024-04-26 07:41 | XMS_ITS | Clinical Summary ---
Author Organization [facility] [address] Address [address] [place] [address] Care Team Providers Care Header Set Up Operator Name Role Phone Christopher Hernández MD Primary Care Provider + [phone] Allergies Active Allergy Reactions Criticality Noted Date Comments Codeine Medications pravastatin (PRAVACHOL) 20 mg tablet take 1 Tablet by oral route every day 0 0 6 Active multivitamin tablet tabletIndicatio ns:Vitamin Deficiency Prevention Take 1 tablet by mouth daily Active levothyroxine (SYNTHROID) 25 mcg tablet Take 1 tablet (25 mcg total) by mouth 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 buying 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 before breakfast [address] (PROTONIX) [...] Active Active Problems No known active problems Medical History Medical History Date Comments Hypertension Hypertension Hx Other Medical dyslipidemia Hx Other Medical bladder surgery Family History Medical History Relation Name Comments Other Father Unknown; Emphysema Mother Emphysema; Caus e of : Emphysema Relation Name Status Comments Father Mother (Age 85) Social History Tobacco Use Types Packs/Day Years [...] on file 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 Gender Identity Not on file Sexual Orientation Not on file Obstetrics History Last Filed Vital Signs Vital Sign Reading [...] 12/15/2023 10:50 AM CDT Plan of Treatment Health Maintenance Due Date Last Done Comments Depression Screening 1940 Osteoporosis Screening-Bone Density Scan 1940 Pneumococcal vaccine 65+ (1 of 2 - PCV) 1945 DTaP/Tdap/Td Vaccine (1 - Tdap) 1950 Hepatitis B Screening 1957 Zoster Vaccine (1 of 2) 1989 Well Visit 65+ 2004 Fall Risk Assessment 09/28/2020 09/29/2019 Influenza Vaccine (#1) 2023 01/26/2019, 2016 Insurance MEDICARE [facility] MEDICARE [facility] Care Teams Header Set Up Operator Relationship Specialty Start Date End Date Christopher Hernández MD PCP - General Family Medicine 08/05/21
--- OUTSIDE RECORDS SUMMARY | 2024-04-26 07:41 | XMS_ITS | Clinical Summary ---
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 Gender Identity Not on file Sexual Orientation Not on file Plan of Treatment Health Maintenance Due Date Last Done Comments DTAP/TDAP/TD VACCINES (1 - Tdap) 1958 PNEUMOCOCCAL VACCINE 65+ YEARS (1 of 1 - PCV) 03/19/18 90 ZOSTER VACCINE (1 of 2) 1989 OSTEOPOROSIS SCREENING 2004 RSV VACCINE (60+ or ) (1 - 1-dose 75+ series) 2014 INFLUENZA VACCINE (#1) 2023 02/02/2023 Insurance RX [employer] Member Subscriber Plan / Payer (Ef fective 2023-Present) Name:Chikis Deal Relation to Subscriber:Not on file Name:Chikis Deal Subscriber ID:Not on file Date of :1940 Payer ID:Not on file Group ID:[id number] Type:RX Commercial Address: [address] [facility] Medicare Part B
== END 2024-04-26 07:37 | disposition home or self-care (01) ==
PROVIDERS: PCP Family Medicine; Visit Provider Physician Assistant Medical
DX: M47.816 Spondylosis without myelopathy or radiculopathy, lumbar region (principal)
CPT/HCPCS: 72148

== ENCOUNTER 2024-06-04 11:53 | Inpatient (IN) | payer MEDICARE, SELFPAY ==
--- NOTE | ~2024-06-04 | CT_ITS ---
EXAMINATION: CT brain wo con DATE: 06/06/2024 10:42 INDICATION: Transient ischemic attack. New neurological symptoms. TECHNIQUE: Computed tomography (CT) of the head was performed without intravenous contrast. The mA wa s adjusted according to patient size. Iterative reconstruction technique was employed. The dose-lengt h product was 529.67 mGy-cm. COMPARISON: Head CT 06/04/2024, brain MRI 06/05/2024 FINDINGS: There is no intracranial hemorrhage, acute infarction, or abnormal intracranial mass lesion . There are scattered areas of low attenuation in the cerebral white matter. The ventricles are tamika l in size. The orbits are normal. There is mild mucosal thickening in the paranasal sinuses. The mast oid air cells are normal. IMPRESSION: 1. Stable extensive nonspecific cerebral white matter disease, which likely represents chronic small vessel ischemic disease. Reviewed, dictated and finalized at location A. IMPRESSION: 1. Stable extensive nonspecific cerebral white matter disease, which likely rep resents chronic small vessel ischemic disease.
--- NOTE | ~2024-06-04 | MR_ITS ---
MR brain/brain stem wo/w con Ordering provider: Paco Snyder MD History: 84 years Female with . TIA . Comparison: CT head performed yesterday. Technique: MRI brain was performed with and without contrast. 16 cc ProHance was given IV. FINDINGS: BONES: Normal. Disc protrusion is seen at the level of C3-C4. CRANIOCERVICAL JUNCTION: normal. PITUITARY: Normal. MAJOR INTRACRANIAL VESSELS: Normal flow void. OPTIC NERVES AND CRANIAL NERVES VII AND VIII COMPLEXES: Grossly normal. BRAIN PARENCHYMA AND CSF SPACES: Moderate nonspecific T2 white matter hyperintensities are seen in a bilateral periventricular and deep white matter distribution which are likely related to chronic isc hemic small vessel disease. Moderate diffuse cortical atrophy. The brainstem and cerebellum are tamika l. No acute or chronic intracranial hemorrhage. No extra axial fluid collections. Diffusion weighted and ADC mapping images reveal no recent ischemia. No midline shift or mass effect. PARANASAL SINUSES: Bilateral ethmoid sinus disease. Right nasal septal deviation. MASTOIDS: Normal SUPERFICIAL/SURROUNDING SOFT TISSUES: Normal. IMPRESSION: 1. No acute intracranial process. 2. No enhancing lesions seen. 3. Disc protrusion at the level of C3-C4. Reviewed, dictated and finalized at location A.
--- NOTE | ~2024-06-04 | XR_ITS ---
XR chest 1V portable DATE: 06/04/2024 15:34 INDICATION: Altered mental state TECHNIQUE: Portable upright AP chest on 06/04/2024 at 1528 hours COMPARISON: 08/10/2021 2 view chest FINDINGS: Borderline heart size. No hilar or mediastinal enlargement. Bilateral hyperinflation. No pulmonary infiltrate or consolidation, pleural effusion or pulmonary vas cular congestion or pneumothorax is detected. Osteopenia. IMPRESSION: Borderline heart size Bilateral hyperinflation No active pulmonary disease Reviewed, dictated and finalized at location A.
--- NOTE | ~2024-06-04 | CT_ITS ---
EXAMINATION: CTA brain carotid DATE: 06/04/2024 16:42 INDICATION: Left-sided headache. TECHNIQUE: Computed tomographic angiography (CTA) of the head was performed without and with 100 mL O mnipaque-350 intravenous contrast. CTA of the neck was performed with intravenous contrast. Automated exposure control and iterative reconstruction technique were employed. The dose-length product was 1 450.12 mGy-cm. Maximum intensity projection and volume rendered 3D-reconstructions were created by ricky pressley technologist on a separate workstation. COMPARISON: Brain MRI 10/09/2022 FINDINGS: HEAD CTA: There are scattered areas of low attenuation in the cerebral white matter and [place]. There i s no intracranial hemorrhage, acute infarction, or abnormal intracranial mass lesion. The ventricles are normal in size. There is mild mucosal thickening in the paranasal sinuses. The orbits are normal. The mastoid air cells are normal. Left vertebral artery is dominant. There is no significant stenosi s of basilar artery or the posterior cerebral arteries. The posterior communicating arteries are norm al. There is no significant stenosis of the intracranial internal carotid arteries or anterior or mid dle cerebral arteries. Anterior communicating artery is normal. There is no aneurysm. NECK CTA: There is mild scarring at the lung apices. There is a 4 mm nodule in left thyroid lobe, lik ian not clinically significant. There are no pathologically enlarged lymph nodes. There is moderate s tenosis of proximal left vertebral artery. There is proximal plaque in the proximal internal carotid arteries. There is 0% stenosis of the proximal right internal carotid artery relative to normal dista l artery lumen diameter (NASCET criteria). There is 0% stenosis of the proximal left internal carotid artery relative to normal distal artery lumen diameter. There is undulation of the cortes of left int ernal carotid artery, consistent with fibromuscular dysplasia. There is severe cervical spondylosis. IMPRESSION: 1. Stable extensive nonspecific cerebral white matter disease and pontine disease, which likely repre sents chronic small vessel ischemic disease. 2. No aneurysm or significant intracranial arterial stenosis. 3. 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 4. 0% stenosis of the proximal internal carotid arteries relative to normal distal artery lumen diame ters (NASCET criteria). Reviewed, dictated and finalized at location A. IMPRESSION: 1. Stable extensive nonspecific cerebral white matter disease and pontine disea se, which likely represents chronic small vessel ischemic disease. 2. No aneurysm or significant intracranial arterial stenosis. 3. 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 4. 0% stenosis of the proximal internal carotid arteries relative to normal dis nakia artery lumen diameters (NASCET criteria).
--- OUTSIDE RECORDS SUMMARY | 2024-06-04 11:55 | XMS_ITS | Clinical Summary ---
Author Organization 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
--- OUTSIDE RECORDS SUMMARY | 2024-06-04 11:55 | XMS_ITS | Clinical Summary ---
Author Organization [facility] [address] Address [address] [place] [address] Care Team Providers Care Copier Operator Name Role Phone Christopher Hernández MD Primary Care Provider + [phone] Allergies Active Allergy Reactions Criticality Noted Date Comments Codeine Medications pravastatin (PRAVACHOL) 20 mg tablet take 1 Tablet by oral route every day 0 0 6 Active multivitamin tablet tabletIndicatio ns:Vitamin Deficiency Prevention Take 1 tablet by mouth daily Active levothyroxine (SYNTHROID) 25 mcg tablet Take 1 tablet (25 mcg total) by mouth housing grant analyst before breakfast [address] (PROTONIX) [...] on file Legal Sex Female 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
--- OUTSIDE RECORDS SUMMARY | 2024-06-04 11:55 | XMS_ITS | Referral Summary ---
Author Organization [facility] [address] Address [address] [place] [address] Care Team Providers Care Crtt Name Role Phone Christopher Hernández MD Primary Care Provider + [phone] Allergies Active Allergy Reactions Criticality Noted Date Comments Codeine Medications pravastatin (PRAVACHOL) 20 mg tablet take 1 Tablet by oral route every day 0 0 6 Active multivitamin tablet tabletIndicatio ns:Vitamin Deficiency Prevention Take 1 tablet by mouth daily Active levothyroxine (SYNTHROID) 25 mcg tablet Take 1 tablet (25 mcg total) by mouth rail car repair carman before breakfast [address] (PROTONIX) [...] on file 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
--- OUTSIDE RECORDS SUMMARY | 2024-06-04 11:55 | XMS_ITS | Clinical Summary ---
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
[2024-06-04 12:15] VITALS: BP 141/75; PULSE 61; RESP 16; TEMP 36.2; O2SAT 97
--- NOTE | 2024-06-04 12:45 | ECG_ITS ---
Test Date: 2024-06-04 12:48:45 Measurements Intervals [place]ier Rate: 56 P: 47 RI: 188 QRS: -43 QRSD: 107 T: 32 QT: 427 QTc: 415 Interpretive Statements SINUS BRADYCARDIA MARKED LEFT AXIS DEVIATION [QRS AXIS < -30] VOLTAGE CRITERIA FOR LVH [MEETS CRITERIA IN ONE OF: R(aVL), S(V1), R(V5), R(V5/V6)+S(V1)] No previous ECG available for comparison Electronically Signed On 06-04-2024 13:36:45 CDT by Oneyda Henry M.D.
[2024-06-04 14:20] VITALS: BP 155/87; PULSE 58; RESP 16; O2SAT 97
--- OUTSIDE RECORDS SUMMARY | 2024-06-04 15:01 | XMS_ITS | Clinical Summary ---
Author Organization 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
--- OUTSIDE RECORDS SUMMARY | 2024-06-04 15:01 | XMS_ITS | Clinical Summary ---
Author Organization [facility] [address] Address [address] [place] [address] Care Team Providers Care Sourcing Manager Name Role Phone Christopher Hernández MD Primary Care Provider + [phone] Allergies Active Allergy Reactions Criticality Noted Date Comments Codeine Medications pravastatin (PRAVACHOL) 20 mg tablet take 1 Tablet by oral route every day 0 0 6 Active multivitamin tablet tabletIndicatio ns:Vitamin Deficiency Prevention Take 1 tablet by mouth daily Active levothyroxine (SYNTHROID) 25 mcg tablet Take 1 tablet (25 mcg total) by mouth diagnostic cardiac sonographer before breakfast [address] (PROTONIX) [...] on file 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
--- OUTSIDE RECORDS SUMMARY | 2024-06-04 15:01 | XMS_ITS | Clinical Summary ---
Author Organization [employer] [facility] Address [address] [address] Care Team Providers Care Supervisor Vendor Quality Name Role Phone Unavailable Primary Care Provider Unavailabl e Immunizations Immunization Administration Dates Next Due INFLUENZA VACCINE HIGH DOSE QUADRIVALENT 65 YR U P PF IM 02/02/2023 Social History Tobacco Use Types Packs/Day Years Used Date Smoking Tobacco: Never Assessed Comments Unknown Sex and Gender Information Value Date Recorded Sex Assigned at Not on file Legal Sex Female 3:06 PM 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 Part B
--- OUTSIDE RECORDS SUMMARY | 2024-06-04 15:01 | XMS_ITS | Referral Summary ---
Author Organization [facility] [address] Address [address] [place] [address] Care Team Providers Care Registered Client Associate Name Role Phone Christopher Hernández MD Primary Care Provider + [phone] Allergies Active Allergy Reactions Criticality Noted Date Comments Codeine Medications pravastatin (PRAVACHOL) 20 mg tablet take 1 Tablet by oral route every day 0 0 6 Active multivitamin tablet tabletIndicatio ns:Vitamin Deficiency Prevention Take 1 tablet by mouth daily Active levothyroxine (SYNTHROID) 25 mcg tablet Take 1 tablet (25 mcg total) by mouth piece marker small arms before breakfast [address] (PROTONIX) [...] on file Legal 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
--- NOTE | 2024-06-04 15:19 | ED.GENADULT ---
HPI - General Adult General Chief complaint: Dizziness Stated complaint: near syncope Time Seen by Provider: 06/04/24 14:54 History of Present Illness HPI narrative: 84-year-old female presenting to the emergency department for evaluation for an episode of left frontal headache with associated lightheaded dizziness and possible speech changes. Patient states that the symptoms lasted about 10-15 minutes. Patient states she has had increased tiredness since the episode. Family was concerned that the patient might have a subtle left-sided facial droop. Patient's face appears similar to her EMR photo at time of examination. Patient denies any prior history of CVA. High cholesterol, CHF, AFib with RVR Related Data Home Medications ?Medication ?Instructions ?Recorded ?Confirmed ?Last Taken ?Type denosumab 60 mg/mL subcutaneous 60 mg subcut [id number] 10/15/20 06/04/24 07/10/21 History syringe (Prolia) ascorbic acid (vitamin C) 1,000 mg 1 g PO DAILY 08/10/21 06/04/24 08/10/21 10:00 History tablet cholecalciferol (vitamin D3) 125 125 mcg PO HS 08/10/21 06/04/24 08/09/21 22:00 History mcg (5,000 unit) capsule [id number] 8 mg-folic 400 1 tablet PO DAILY 08/10/21 06/04/24 08/10/21 10:00 History mcg-K 50 mcg-lutein 300 mcg tablet (Centrum Silver Women) flecainide 50 mg tablet 50 mg PO Q12H 10/22/21 06/04/24 Unknown History carvedilol 6.25 mg tablet 6.25 mg PO BID 01/05/24 06/04/24 Unknown History lisinopril 20 mg tablet 40 mg PO DAILY 01/05/24 06/04/24 Unknown History finasteride 5 mg tablet 5 mg PO ONCE 01/25/24 06/04/24 Unknown History Allergies Allergy/AdvReac Type Severity Reaction Status Date / Time codeine AdvReac Mild NAUSEA/DIZZ Verified 06/04/24 14:22 INESS Review of Systems Review of Systems: All systems reviewed & are unremarkable except as noted in HPI and below PMFSH Past Medical History Medical History Overweight with body mass index (BMI) of 28 to 28.9 in adult Cataract of right eye Maturing Chronic diastolic heart failure Last outpatient echo EF 60-65%, mild concentric left ventricular hypertrophy, impaired diastolic relaxation grade 1, mild mitral valve regurgitation, mild tricuspid regurgitation mild pulmonary regurgitation Paroxysmal atrial fibrillation Urge urinary incontinence Hypothyroidism Hyperlipidemia Essential hypertension Surgical History Surgical History History of bunionectomy of right great toe History of appendectomy (~1984) History of bladder suspension procedure (~1984) Family History Family History Father Heart disease Mother Emphysema of lung Sibling Ovarian cancer Carcinoma of colon Sibling Diabetes mellitus Bone cancer Daughter Lung cancer Daughter Cancer, metastatic Social History Social History Social History: The patient is independent activities of daily living. She is to her 2nd for the last 35 years. She has 1 living son. Her youngest daughter at age 51 from metastatic cervical cancer. Her oldest daughter in December of lung cancer. Code status: Full code currently. The patient would like to discuss options with her family before making a final decision. Surrogate decision maker: Carlo Sousa (son) Smoking packs per day: 0.5 Smoking cigarettes per day: 10.0 Years smoked: 12 Smoking pack-years: 6.00 Smoking status: Former smoker Tobacco type: cigarettes Second hand tobacco smoke exposure: No Alcohol intake: current Drinks per week: 1 Alcohol use details: She drinks a glass of wine from time to time Substance use: never Substance use type: does not use Do You Feel Safe in your Home?: Yes Lack of Transportation: No Lack of Food: Never True Current Housing: I Have Housing Concerned About Future Housing: No Difficulty Paying Gas/Electric Bills: No Difficulty Paying for Meds: No Currently Unemployed: No Education: High School Diploma/GED Difficulty w/ Childcare or Family Care: No Living arrangements: with family Occupation/Education: retired 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 HEAD: normocephalic, atraumatic. EYES: PERRLA/EOMI, conjunctivae clear. NOSE: Normal no drainage EARS:TMS clear with good light reflex. THROAT: Pharynx clear, no exudate. NECK: Supple. No adenopathy, no masses. RESPIRATORY: Airway patent, respirations nonlabored. Clear to auscultation bilaterally, no rales, rhonchi, wheezing. CARDIOVASCULAR: Regular rate and rhythm without murmurs rubs or gallops. ABDOMINAL: Soft, nontender, nondistended, normal bowel sounds MUSCULOSKELETAL: Moves all extremities. Strength/ROM intact, No edema, No calf tenderness. NEURO: Alert. Cranial nerves II through XII intact. Grossly intact. NIH of 0 SKIN: Warm, dry. Normal Color Course Vital Signs Vital signs: Vital Signs Temperature 97.2 F L 06/04/24 12:15 Pulse Rate 61 06/04/24 12:15 Respiratory Rate 16 06/04/24 12:15 Blood Pressure 141/75 H 06/04/24 12:15 Pulse Oximetry 97 06/04/24 12:15 Oxygen Delivery Room Air 06/04/24 12:15 Temperature 97.2 F L 06/04/24 12:15 Pulse Rate 58 L 06/04/24 14:20 Respiratory Rate 16 06/04/24 14:20 Blood Pressure 155/87 H 06/04/24 14:20 Pulse Oximetry 97 06/04/24 14:20 Oxygen Delivery Room Air 06/04/24 12:15 Medical Decision Making [facility] Narrative Medical decision making narrative: 84-year-old female presented emergency department for evaluation for left frontal headache with possible associated speech change. Patient is asymptomatic at this time. Patient is afebrile but does have a leukocytosis of 11 with a hemoglobin of 14.3. INR is 1.2, no acute abnormalities on the patient's CMP. TSH is normal. No evidence of urinary tract infection. CTA head neck showed no acute infarct or large vessel thrombus with normal carotids. Case was discussed with Neurology and they will see the patient as consult. Case was discussed with hospitalist patient will be admitted for MRI and further TIA workup. Patient family were updated the results of the workup plan for admission. All questions concerns were addressed. Patient is on Eliquis. Differential Diagnosis Differential Diagnosis: TIA, CVA, migraine, headache, dehydration, vertigo Vital Signs Vital Signs: Vital Signs Temperature 97.2 F L 06/04/24 12:15 Pulse Rate 61 06/04/24 12:15 Respiratory Rate 16 06/04/24 12:15 Blood Pressure 141/75 H 06/04/24 12:15 Pulse Oximetry 97 06/04/24 12:15 Oxygen Delivery Room Air 06/04/24 12:15 Temperature 97.2 F L 06/04/24 12:15 Pulse Rate 58 L 06/04/24 14:20 Respiratory Rate 16 06/04/24 14:20 Blood Pressure 155/87 H 06/04/24 14:20 Pulse Oximetry 97 06/04/24 14:20 Oxygen Delivery Room Air 06/04/24 12:15 Lab Data Lab results reviewed: Yes I reviewed the patient's lab results. 06/04/24 15:44 06/04/24 15:44 Labs: Lab Results 06/04/24 06/04/24 06/04/24 Range/Units 15:43 15:44 15:44 WBC 11.0 H (4.5-10.0) K/mm3 RBC 4.32 (4.2-5.4) M/mm3 Hgb 14.3 (12.0-15.0) g/dL Hct 42.4 (37.0-47.0) % MCV 98.1 (80-100) fl MCH 33.1 (26-34) pg MCHC 33.7 (32-36) g/dl RDW 11.9 (11.5-14.5) % Plt Count 239 (150-375) k/mm3 MPV 8.7 (7.4-10.4) fl Immature Gran % (Auto) 1.2 H (0-0.5) % Neut % (Auto) 66.0 (45.5-73.1) % Lymph % (Auto) 25.7 (18.3-44.2) % Edgar % (Auto) 5.4 (2.6-8.5) % Eos % (Auto) 1.3 (0-4.4) % Baso % (Auto) 0.4 (0.2-1.2) % Lymph # (Auto) 2.81 (0.9-3.2) K/mm3 Edgar # (Auto) 0.6 (0.1-0.6) K/mm3 Eos # (Auto) 0.1 (0-0.3) K/mm3 Baso # (Auto) 0.0 (0.0-0.1) K/mm3 Abs Immat Gran (auto) 0.13 H (0.00-0.031) K/mm3 Absolute Neuts (auto) 7.2 H (1.3-6.7) K/mm3 Absolute Nucleated RBC 0.000 (0.0-0.012) K/mm3 Nucleated RBC % 0.0 (0.0-0.2) % PT 15.3 H (11.1-14.7) Seconds INR 1.2 APTT 27.7 (22.3-36.8) Seconds Sodium 140 (137-145) mmol/L Potassium 4.1 (3.4-5.0) mmol/L Chloride 103 (98-107) mmol/L Carbon Dioxide 28 (22-30) mmol/L Anion Gap 9 (4-12) mmol/L BUN 15 (7-17) mg/dL Creatinine 0.63 L (0.7-1.0) mg/dL Estim Creat Clear Calc 56 ml/min Estimated GFR > 60 (59 - ) Glucose 108 (65-110) mg/dL Calcium 9.5 (8.4-10.2) mg/dL Magnesium 2.0 Cancelled (1.6-2.3) mg/dL Total Bilirubin 0.9 (0.2-1.3) mg/dL AST 22 (14-36) U/L ALT 15 (6-35) U/L Alkaline Phosphatase 64 (38-126) U/L Total Protein 8.0 (6.3-8.2) g/dL Albumin 4.5 (3.5-5.1) g/dL TSH (Reflex) 1.660 (0.465-4.68) uIU/mL Urine Color Yellow (Yellow) Urine Appearance Clear (Clear) Urine pH 8.0 (5.0-9.0) Ur Specific [place] 1.009 (1.001-1.035) Urine Protein Negative (Negative) mg/dL Urine Glucose (UA) Negative (Negative) mg/dL Urine Ketones Negative (Negative) mg/dL Ur Blood (Man) Negative (Negative) Urine Nitrate Negative (Negative) Urine Bilirubin Negative (Negative) Urine Urobilinogen 0.2 (<2.0) mg/dL Leukocyte Esterase Rfl Negative (Negative) ESTHER/UL Imaging Data Radiologist's impression: Impressions Chest X-Ray 06/04/24 15:37 IMPRESSION: Borderline heart size Bilateral hyperinflation No active pulmonary disease Head/Neck CTA 06/04/24 16:47 IMPRESSION: 1. Stable extensive nonspecific cerebral white matter disease and pontine disease, which likely represents chronic small vessel ischemic disease. 2. No aneurysm or significant intracranial arterial stenosis. 3. 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 4. 0% stenosis of the proximal internal carotid arteries relative to normal distal artery lumen diameters (NASCET criteria). Discharge Plan Discharge Clinical Impression: Brain TIA, Frontal headache Patient Disposition: Still a Patient Condition: Stable Quality Stroke Scale Stroke Scale 1: 1a Level of consciousness: alert-0 1b Level of consciousness questions: answers both correctly-0 1c Level of consciousness commands: obeys both correctly-0 2 Best gaze: normal-0 3 Visual: no visual loss-0 4 Facial palsy: normal-0 5a Motor: left arm: no drift-0 5b Motor: right arm: no drift-0 6a Motor: left leg: no drift-0 6b Motor: right leg: no drift-0 7 Limb ataxia: absent-0 8 Sensory: normal-0 9 Best language: no aphasia-0 10 Dysarthria: normal-0 11 Extinction and inattention: no abnormality-0 Level:: 0
[2024-06-04 15:52] LABS: Basophils Percent Auto 0.4 % (0.2-1.2); Eosinophils Absolute Auto 0.1 K/mm3 (0-0.3); Eosinophils Percent Auto 1.3 % (0-4.4); Hematocrit 42.4 % (37.0-47.0); Hemoglobin 14.3 g/dL (12.0-15.0); Immature Granulocyte Absolute 0.13 K/mm3 (0.00-0.031); Immature Granulocyte Percent A 1.2 % (0-0.5); Lymphocytes Absolute Auto 2.81 K/mm3 (0.9-3.2); Lymphocytes Percent Auto 25.7 % (18.3-44.2); Mean Corpuscular HGB Conc 33.7 g/dl (32-36); Mean Corpuscular Hemoglobin 33.1 pg (26-34); Mean Corpuscular Volume 98.1 fl (80-100); Mean Platelet Volume 8.7 fl (7.4-10.4); Monocytes Absolute Auto 0.6 K/mm3 (0.1-0.6); Monocytes Percent Auto 5.4 % (2.6-8.5); Neutrophils Absolute Auto 7.2 K/mm3 (1.3-6.7); Platelet Count Result 239 k/mm3 (150-375); Red Blood Count 4.32 M/mm3 (4.2-5.4); Red Cell Distribution Width 11.9 % (11.5-14.5)
[2024-06-04 15:53] LABS: Add Urine Microscopic? NO; Appearance Urine Clear (Clear); Bilirubin Urine Negative (Negative); Blood Urine Negative (Negative); Color Urine Yellow (Yellow); Glucose Urine UA Negative (Negative); Ketones Urine Negative (Negative); Leukocyte Esterase Ur Negative LEU/UL (Negative); Nitrate Urine Negative (Negative); Protein Urine Negative (Negative); Specific Grav Ur 1.009 (1.001-1.035); Urobilinogen Urine 0.2 mg/dL (<2.0)
[2024-06-04 16:03] LABS: INR 1.2; Partial Thromboplastin Time 27.7 Seconds (22.3-36.8); Prothrombin Time 15.3 Seconds (11.1-14.7)
[2024-06-04 16:04] LABS: Alanine Aminotransferase 15 U/L (6-35); Albumin Level 4.5 g/dL (3.5-5.1); Alkaline Phosphatase 64 U/L (38-126); Anion Gap 9 mmol/L (4-12); Aspartate Amino Transferase 22 U/L (14-36); Bilirubin,Total 0.9 mg/dL (0.2-1.3); Blood Urea Nitrogen 15 mg/dL (7-17); Calcium 9.5 mg/dL (8.4-10.2); Carbon Dioxide 28 mmol/L (22-30); Chloride 103 mmol/L (98-107); Estimated CRCL calculation 56 ml/min; Estimated Glomerular Filt Rate > 60; Glucose 108 mg/dL (65-110); Potassium 4.1 mmol/L (3.4-5.0); Sodium 140 mmol/L (137-145)
--- NOTE | 2024-06-04 17:28 | P.HP_ITS ---
H&P: HPI History of Present Illness Date/Time: 06/04/24 17:28 Chief Complaint: Dizziness Narrative: 84-year-old female past medical history of hypertension, hypothyroidism, hyperlipidemia, and chronic diastolic heart failure presents the hospital for dizziness and lightheadedness. Patient states that started describe her symptoms. Earlier today she was standing in the kitchen, felt lightheaded, states that she did not have blurry vision but she felt like she was going to pass out so she sat down for a little bit, and then she went to the bedroom to lay down. She states that her symptoms lasted for about 10 minutes. She was worried she may be having a stroke so she came into the hospital. In the ED she has leukocytosis 11.0, the rest of her lab work is within normal limits, UA negative for infection, chest x-ray shows bilateral hyperinflation, CT shows Stable extensive nonspecific cerebral white matter disease and pontine disease, which likely represents chronic small vessel ischemic disease. 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 0% stenosis of the proximal internal carotid arteries relative to normal distal artery lumen diameters (NASCET criteria). EKG shows Sinus Fredrick at 65. Neurology consulted and plan for MRI tomorrow. Review of Systems Review of Systems: 12 systems were reviewed and are negativ e except for as per HPI. [facility] Past Medical History Medical History Overweight with body mass index (BMI) of 28 to 28.9 in adult Cataract of right eye Maturing Chronic diastolic heart failure Last outpatient echo EF 60-65%, mild concentric left ventricular hypertrophy, impaired diastolic relaxation grade 1, mild mitral valve regurgitation, mild tricuspid regurgitation mild pulmonary regurgitation Paroxysmal atrial fibrillation Urge urinary incontinence Hypothyroidism Hyperlipidemia Essential hypertension Surgical History Surgical History History of bunionectomy of right great toe History of appendectomy (~1984) History of bladder suspension procedure (~1984) Family History Family History Father Heart disease Mother Emphysema of lung Sibling Ovarian cancer Carcinoma of colon Sibling Diabetes mellitus Bone cancer Daughter Lung cancer Daughter Cancer, metastatic Social History Social History Social History: The patient is independent activities of daily living. She is to her 2nd for the last 35 years. She has 1 living son. Her youngest daughter at age 51 from metastatic cervical cancer. Her oldest daughter in December of lung cancer. Code status: Full code currently. The patient would like to discuss options with her family before making a final decision. Surrogate decision maker: Carlo Sousa (son) Smoking packs per day: 0.5 Smoking cigarettes per day: 10.0 Years smoked: 12 Smoking pack-years: 6.00 Smoking status: Former smoker Tobacco type: cigarettes Second hand tobacco smoke exposure: No Alcohol intake: former Drinks per week: 1 Alcohol use details: She drinks a glass of wine from time to time Substance use: never Substance use type: does not use Do You Feel Safe in your Home?: Yes Lack of Transportation: No Lack of Food: Never True Current Housing: I Have Housing Concerned About Future Housing: No Difficulty Paying Gas/Electric Bills: No Difficulty Paying for Meds: No Currently Unemployed: No Education: High School Diploma/GED Difficulty w/ Childcare or Family Care: No Living arrangements: with family Occupation/Education: retired 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 [employer] Gender identity (if verbalized by the patient): Female Spiritual care concerns: No Meds Home Medications and Allergies Home Medications ?Medication ?Instructions ?Recorded ?Confirmed ?Type apixaban 5 mg tablet (Eliquis) 5 mg PO BID #2 tabs 04/16/20 06/04/24 Rx denosumab 60 mg/mL subcutaneous 60 mg subcut [id number] 10/15/20 06/04/24 History syringe (Prolia) ascorbic acid (vitamin C) 1,000 mg 1 g PO DAILY 08/10/21 06/04/24 History tablet cholecalciferol (vitamin D3) 125 125 mcg PO HS 08/10/21 06/04/24 History mcg (5,000 unit) capsule [id number] 8 mg-folic 400 1 tablet PO DAILY 08/10/21 06/04/24 History mcg-K 50 mcg-lutein 300 mcg tablet (Centrum Silver Women) flecainide 50 mg tablet 50 mg PO Q12H 10/22/21 06/04/24 History pantoprazole 40 mg tablet,delayed 40 mg PO QAM #90 tabs 08/03/23 06/04/24 Rx release pravastatin 20 mg tablet 20 mg PO HS #90 tabs 10/29/23 06/04/24 Rx levothyroxine 25 mcg tablet See Rx Instructions .Route 11/11/23 06/04/24 Rx .COMPLEX #90 tabs carvedilol 6.25 mg tablet 6.25 mg PO BID 01/05/24 06/04/24 History lisinopril 20 mg tablet 40 mg PO DAILY 01/05/24 06/04/24 History finasteride 5 mg tablet 5 mg PO ONCE 01/25/24 06/04/24 History tizanidine 2 mg tablet 2 mg PO TID PRN muscle spasticity 05/23/24 06/04/24 Rx #20 tabs Allergies Allergy/AdvReac Type Severity Reaction Status Date / Time codeine AdvReac Mild NAUSEA/DIZZ Verified 06/04/24 14:22 INESS Vital Signs Vital Signs - 24 hr 06/04/24 12:15 06/04/24 14:20 Temperature 97.2 F L Pulse Rate 61 58 L Respiratory Rate 16 16 Blood Pressure 141/75 H 155/87 H Pulse Oximetry 97 97 Oxygen Delivery Room Air Exam Narrative: General: well appearing, appears stated age. HEENT: normocephalic, atraumatic. Mucous membranes moist. EOMI, PERRLA, bilateral sclera anicteric, no conjunctival injection. Neck supple without JVD, lymphadenopathy, or bruit. Respiratory: clear to ascultation bilaterally. No rales/rhonic/wheezes. Cardiovascular: Regular rate and rhythm, normal S1-S2 upon ascultation. No murmurs, rubs, or clicks. PMI is nondisplaced, capillary refill less than 3 second. Abdomen: Soft, round, no pulsatile masses, nondistended and nontender. No rebound, no guarding. No CVA tenderness, no hepatosplenomegaly. Bowel sounds present to all four quadrants. No high pitch or tinkling sounds, resonant to p ercussion. Extremities: No cyanosis, clubbing, or edema present. Pulses are palpable 2/2. Active ROM to all four extremities. Neuro: Alert and orientated x 4. PERRLA. Cranial nerves 2-12 intact without focal deficit. Skin: Warm, dry, and intact, without rash, erythema, or lesion. Psych: pleasant, cooperative, normal speech, normal affect, no hallucinations, no dysarthia NIH 1: Left flattened nasolabial fold H&P: Results Labs Labs: Short CBC 06/04/24 Range/Units 15:44 WBC 11.0 H (4.5-10.0) K/mm3 Hgb 14.3 (12.0-15.0) g/dL Hct 42.4 (37.0-47.0) % Plt Count 239 (150-375) k/mm3 BMP 06/04/24 15:44 Sodium 140 Potassium 4.1 Chloride 103 Carbon Dioxide 28 BUN 15 Creatinine 0.63 L Glucose 108 Calcium 9.5 Liver Function 06/04/24 Range/Units 15:44 Total Bilirubin 0.9 (0.2-1.3) mg/dL AST 22 (14-36) U/L ALT 15 (6-35) U/L Alkaline Phosphatase 64 (38-126) U/L Albumin 4.5 (3.5-5.1) g/dL Urine 06/04/24 Range/Units 15:43 Urine Color Yellow (Yellow) Urine Appearance Clear (Clear) Urine pH 8.0 (5.0-9.0) Ur Specific [place] 1.009 (1.001-1.035) Urine Protein Negative (Negative) mg/dL Urine Glucose (UA) Negative (Negative) mg/dL Assessment and Plan Assessment and plan (1) Dizziness: Code(s): R42 - Dizziness and giddiness Status: Acute Assessment and Plan: Neurology consulted Plan for MRI tomorrow Telemetry monitoring Neuro checks check Permissive hypertension Echo with bubble (2) Afib: Qualifiers: Atrial fibrillation type: unspecified chronic Qualified Code(s): I48.20 - Chronic atrial fibrillation, unspecified Code(s): I48.91 - Unspecified atrial fibrillation Status: Acute Assessment and Plan: Rate controlled Restart Eliquis and tambocor, carvedilol (3) Hypothyroidism: Qualifiers: Hypothyroidism type: unspecified Qualified Code(s): E03.9 - Hypothyroidism, unspecified Code(s): E03.9 - Hypothyroidism, unspecified Status: Acute Assessment and Plan: Restart Synthroid (4) Essential hypertension: Code(s): I10 - Essential (primary) hypertension Status: Acute Assessment and Plan: Hold lisinopril permissive hypertension (5) Chronic diastolic heart failure: Code(s): I50.32 - Chronic diastolic (congestive) heart failure Status: Acute Assessment and Plan: Patient not on diuretics, euvolemic (6) Hyperlipidemia: Qualifiers: Hyperlipidemia type: unspecified Qualified Code(s): E78.5 - Hyperlipidemia, unspecified Code(s): E78.5 - Hyperlipidemia, unspecified Status: Acute Assessment and Plan: Restart statin Quality VTE Prophylaxis VTE prophylaxis: mechanical ordered and pharmacologic ordered Stroke Scale 1a Level of conciousness: alert-0 1b Level of consciousness: answers both correctly-0 1c Level of consciousness: obeys both correctly-0 2 Best gaze: normal-0 3 Visual: no visual loss-0 4 Facial palsy: minor paralysis-1 5a Motor: left arm: no drift-0 5b Motor: right arm: no drift-0 6a Motor: left leg: no drift-0 6b Motor: right leg: no drift-0 7 Limb ataxia: absent-0 8 Sensory: normal-0 9 Best language: no aphasia-0 10 Dysarthria: normal-0 11 Extinction and inattention: no abnormality-0 Level:: 1 Hospitalist MIPS Advance Care Plan I have confirmed that the patient's Advanced Care Plan is present, code status is documented, or surrogate decision maker is listed in patient medical record.: Yes Medication Reconciliation I have utilized all available resources to obtain, update and review the consuelo ents current medications (includes all prescriptions, OTC, herbals, cannabis, and nutritional supplements).: Yes
[2024-06-04] MEDS: APIXABAN 5 MG TABLET PO (18:42)
[2024-06-04 20:16] VITALS: PULSE 60; RESP 13; O2SAT 95
[2024-06-04 20:40] VITALS: BMI 26.6
--- NOTE | 2024-06-04 20:40 | ADMGEN ---
This patient, Chikis Deal, was admitted to Medical Room 247-. Patient/family oriented to hospital policies and general routines including ID bracelet, bed and alarms, visiting hours, pain management, procedures, bathroom and other care routines, personal items, smoking policy, room service/diet, and visiting hours. Information on how to activate the Rapid Response Team has been discussed. Patient/Family are encouraged to report perceived risks to care and to ask questions if they do not understand what they are told or what they should do.
[2024-06-04 21:13] VITALS: BP 151/72; PULSE 71; RESP 16; TEMP 36.6; O2SAT 94
[2024-06-04] MEDS: PRAVASTATIN SODIUM 20 MG TABLET PO (21:30)
[2024-06-04 22:09] VITALS: PULSE 71
[2024-06-04] MEDS: FLECAINIDE ACETATE 50 MG TABLET PO (22:09)
[2024-06-04] MEDS: carvediloL 6.25 MG TABLET PO (22:09)
[2024-06-05] VITALS (13 sets, daily range): BP systolic 115–160; BP diastolic 49–72; PULSE 57–75; RESP 18–20; TEMP 36.1–36.9; O2SAT 94–97
--- NOTE | 2024-06-05 | ECHO_ITS ---
Patient Info Name: Chikis Deal Age: 84 years : 1940 Gender: Female Ht: 68 in Wt: 176 lbs BSA: 1.97 m2 HR: 61 bpm BP: 131 / 72 mmHg Heart Rhythm: Sinus Rhythm Technical Quality: Fair Exam Date: 06/05/2024 2:51 PM Exam Location: Echo Lab Patient Status: Outpatient Admit Date: 06/04/2024 Staff Ordering Physician: Lena Garduno APRN Occupational Therapist'S Assistant: Deonna Pimentel RDCS Attending Provider: Anastacia Fair PA-C Referring Physician: Laureen CHAVEZ; Exam Type: CA echo dop bubble study w con Study Info Indications - TIA Complete two-dimentional, color flow and Doppler transthoracic echocardiogram is performed with agitated saline and with contrast to opacify the left ventricle and to improve the delineation of the left ventricle endocardial borders. Contrast/Agitated Saline Contrast/Ag. Saline: Definity Amount: 2.00 ml Existing IV Access: Yes IV Access Condition: patent with no signs of infiltration Contrast/Ag. Saline: Agitated Saline Amount: 12.00 ml Existing IV Access: Yes IV Access Condition: patent with no signs of infiltration Summary 1. Left ventricular chamber dimension is normal. 2. Left ventricular systolic function is normal, estimated at 60-65%. 3. There is mildly increased left ventricular wall thickness. 4. The left ventricular diastolic function is grade I diastolic dysfunction. 5. Right ventricular systolic function is normal. 6. Right atrial chamber dimension is mildly enlarged. 7. Suspected patent foramen ovale visualized by agitated saline imaging. 8. There is mild aortic valve regurgitation. 9. There is mild tricuspid valve regurgitation. Left Ventricle Left ventricular chamber dimension is normal. Left ventricular systolic function is normal, estimated at 60-65%. There is mildly increased left ventricular wall thickness. The left ventricular diastolic function is grade I diastolic dysfunction. Right Ventricle Right ventricular chamber dimension is normal. Right ventricular systolic function is normal. Left Atria Left atrial chamber dimension is normal. Right Atria Right atrial chamber dimension is mildly enlarged. Atrial Septum Suspected patent foramen ovale visualized by agitated saline imaging. Aortic Valve The aortic valve is trileaflet. There is no aortic valve stenosis. There is mild aortic valve regurgitation. Pulmonic Valve The pulmonic valve is not well visualized. There is trace pulmonic regurgitation. Mitral Valve There is trace mitral valve regurgitation. The mitral valve annulus is mildly calcified. Tricuspid Valve There is mild tricuspid valve regurgitation. Pericardium/Pleural The pericardium appears epicardial fat pad. There is no pericardial effusion. Inferior Vena Cava Normal inferior vena cava with >50% collapse upon inspiration consistent with normal right atrial pressure, 3 mmHg. Aorta The aortic root size at the sinus of Valsalva is normal. Left Ventricular Outflow Tract Name Value Normal LVOT 2D LVOT Diameter 2.0 cm LVOT Doppler LVOT Peak Gradient 3 mmHg LVOT Mean Gradient 2 mmHg LVOT VTI 21 cm LVOT VTI/AV VTI Ratio 0.9 LVOT Stroke Volume 65 ml LVOT CO 12.2 l/min LVOT CI 6.2 l/min/m2 Pulmonic Valve Name Value Normal PV Doppler PV Peak Gradient 3 mmHg Mitral Valve Name Value Normal MV Doppler MV Decel Hutchinson 268 cm/s2 MV PHT 76 ms MV Area (PHT) 2.9 cm2 4.0-5.0 MV Diastolic Function MV E Peak Velocity 70 cm/s MV A Peak Velocity 94 cm/s MV E/A 0.7 MV Decel Time 261 ms MV Annular TDI MV E/e' (Septal) 15.2 <=8.0 MV E/e' (Lateral) 10.5 <=8.0 MV E/e' (Average) 12.9 Tricuspid Valve Name Value Normal TV Regurgitation Doppler TR Peak Velocity 245 cm/s TR Peak Gradient 22 mmHg Estimated PAP/RSVP RA Pressure 3 mmHg <=5 PA Systolic Pressure 27 mmHg <36 RV Systolic Pressure 27 mmHg <36 Aorta Name Value Normal Ascending Aorta Ao Root Diameter (MM) 3.3 cm Ao Root Diam Index (MM) 1.7 cm/m2 Aortic Valve Name Value Normal AV Doppler AV Peak Velocity 112 cm/s AV Peak Gradient 5 mmHg AV Mean Gradient 3 mmHg AV VTI 25 cm AV Area (Cont Eq VTI) 2.6 cm2 >=3.0 AV Area (Cont Eq Cameron) 2.4 cm2 AV Regurgitation 2D LVOT Area 3.0 cm2 Ventricles Name Value Normal LV Dimensions 2D/MM IVS Diastolic Thickness (2D) 1.3 cm 0.6-1.0 LVID Diastole (2D) 4.3 cm 3.8-5.2 LVIW Diastolic Thickness (2D) 1.4 cm 0.6-0.9 LVID Systole (2D) 2.8 cm 2.2-3.5 LVOT Diameter 2.0 cm LV Mass (2D Cubed) 221.49 g 67.00-162.00 LV Mass Index (2D Cubed) 112 g/m2 43-95 Relative Wall Thickness (2D) 0.65 LV Fractional Shortening/Ejection Fraction 2D/MM LV Fractional Shortening (2D) 35 % 27-45 LV EF (2D Teicholz) 64 % 54-74 LV Diastolic Volume (4C MOD) 62 ml LV EF (4C MOD) 55 % LV Diastolic Volume (2C MOD) 75 ml LV EF (2C MOD) 72 % LV Diastolic Volume (BP MOD) 69 ml 46-106 LV Diastolic Volume Index (BP MOD) 35 ml/m2 29-61 LV Systolic Volume (BP MOD) 26 ml 14-42 LV Systolic Volume Index (BP MOD) 13 ml/m2 8-24 LV EF (BP MOD) 62 % 54-74 LV Diastolic Length (4C) 7.8 cm LV Systolic Length (4C) 6.8 cm LV Stroke Volume (4C MOD) 34 ml RV Dimensions 2D/MM RVID Diastole (2D) 4.1 cm 2.5-3.5 Atria Name Value Normal LA Dimensions LA Dimension (MM) 3.0 cm 2.7-3.8 LA Volume (4C A-L) 27 ml LA Volume (BP A-L) 37 ml RA Dimensions RA Area (4C) 18.3 cm2 <=18.0 Report Signatures
[2024-06-05 05:38] LABS: Basophils Absolute Auto 0.1 K/mm3 (0.0-0.1); Basophils Percent Auto 0.6 % (0.2-1.2); Eosinophils Absolute Auto 0.2 K/mm3 (0-0.3); Eosinophils Percent Auto 1.8 % (0-4.4); Hematocrit 38.8 % (37.0-47.0); Hemoglobin 13.1 g/dL (12.0-15.0); Immature Granulocyte Absolute 0.08 K/mm3 (0.00-0.031); Immature Granulocyte Percent A 0.9 % (0-0.5); Lymphocytes Absolute Auto 2.78 K/mm3 (0.9-3.2); Mean Corpuscular HGB Conc 33.8 g/dl (32-36); Mean Corpuscular Hemoglobin 33.4 pg (26-34); Mean Platelet Volume 8.9 fl (7.4-10.4); Monocytes Absolute Auto 0.7 K/mm3 (0.1-0.6); Monocytes Percent Auto 7.9 % (2.6-8.5); Neutrophils Absolute Auto 4.9 K/mm3 (1.3-6.7); Neutrophils Percent Auto 56.8 % (45.5-73.1); Platelet Count Result 221 k/mm3 (150-375); Red Blood Count 3.92 M/mm3 (4.2-5.4); White Blood Count 8.7 K/mm3 (4.5-10.0)
[2024-06-05] MEDS: LEVOTHYROXINE SODIUM 25 MCG TABLET BY MOUTH (05:41)
[2024-06-05 05:52] LABS: Anion Gap 7 mmol/L (4-12); Blood Urea Nitrogen 15 mg/dL (7-17); Calcium 9.1 mg/dL (8.4-10.2); Carbon Dioxide 27 mmol/L (22-30); Chloride 106 mmol/L (98-107); Estimated CRCL calculation 54 ml/min; Estimated Glomerular Filt Rate > 60; Glucose 100 mg/dL (65-110); Potassium 3.9 mmol/L (3.4-5.0); Sodium 140 mmol/L (137-145)
--- NOTE | 2024-06-05 07:24 | PM.IMPN ---
Progress Note: A&P Assessment and Plan (1) Dizziness: Code(s): R42 - Dizziness and giddiness Status: Acute Assessment and Plan: Per chart review patient developed dizziness and felt she was going to pass out Possible etiologies include bradycardia given HR 50s on EKG, arrhythmia (hx afib), orthostatic hypotension, tia vs stroke - Orthostatic blood pressure - Lipid pane ordered, increased pravastatin to 40 mg daily - EKG sinus bradycardia - Chest XR: Borderline heart size with bilateral hyperinflation. No active pulmonary disease. - Head/neck CTA: Stable extensive nonspecific cerebral white matter disease and pontine disease, which likely represents chronic small vessel ischemic disease.No aneurysm or significant intracranial arterial stenosis.Moderate stenosis of proximal left vertebral artery. 0% stenosis of the proximal internal carotid arteries - MRI: No acute intracranial process, no enhancing lesions, disc protrusion at the level of C3-4. - Echo ordered - Monitor CBC, CMP, magnesium, troponin, and lipid profile - Monitor blood pressure - Telemetry monitoring. HR 50-70s, patient asymptomatic denying dizziness/lightheadedness. - Monitor blood glucose - PT/OT eval and treat - Neurology consulted, appreciate assistance and recommendations Considering the age of the patient will continue the anticoagulation Needs to be explained to the family about the moderate arterial stenosis could be one of the contributing factor. Orthostasis is being checked while she is in the hospital Pravastatin can be changed to 40mg daily. Dizziness had entirely resolved at time of assessment. (2) Afib: Qualifiers: Atrial fibrillation type: unspecified chronic Qualified Code(s): I48.20 - Chronic atrial fibrillation, unspecified Code(s): I48.91 - Unspecified atrial fibrillation Status: Acute Assessment and Plan: EKG showing sinus bradycardia HR 56 Rate controlled with carvedilol 6.25 BID and flecainide 50 mg BID Anticoagulated with Eliquis 5 mg BID Tele (3) Hypothyroidism: Qualifiers: Hypothyroidism type: unspecified Qualified Code(s): E03.9 - Hypothyroidism, unspecified Code(s): E03.9 - Hypothyroidism, unspecified Status: Acute Assessment and Plan: Restart Synthroid 25 mcg daily TSH WNL (4) Essential hypertension: Code(s): I10 - Essential (primary) hypertension Status: Acute Assessment and Plan: Chronic Continue carvedilol 6.25 and lisinopril 40 mg daily Blood pressures remain stable, continue to monitor (5) Chronic diastolic heart failure: Code(s): I50.32 - Chronic diastolic (congestive) heart failure Status: Acute Assessment and Plan: Patient not on diuretics, euvolemic (6) Hyperlipidemia: Qualifiers: Hyperlipidemia type: unspecified Qualified Code(s): E78.5 - Hyperlipidemia, unspecified Code(s): E78.5 - Hyperlipidemia, unspecified Status: Acute Assessment and Plan: Pravastatin dose increased to 40 mg daily per Neurology Time Spent With Patient Time with patient: 25 - 35 minutes Subjective Date/time seen: 06/05/24 07:24 Interval history: 84-year-old female past medical history of hypertension, hypothyroidism, hyperlipidemia, and chronic diastolic heart failure presents the hospital for dizziness and lightheadedness. Patient is pleasant lying comfortably bed with at bedside. She has no complaints at this time denying chest pain, palpitations, shortness of breath, nausea/vomiting, abdominal pain, dizziness and lightheadedness. She states that she has not had any dizziness/lightheadedness since admission. She denies feeling weak or having an unsteady gait when ambulating throughout her room. Patient evaluated by therapy today and no further recommendations. Review of Systems Review of Systems: All systems reviewed & are unremarkable except as noted in HPI and below Exam Narrative: AF HR 75 RR 18 SpO2 96 BP 136/60 General: female in no acute respiratory distress who is nontoxic appearing, lying semi recumbent in bed. HEENT: Normocephalic. Atraumatic. Extraocular movement intact. Sclera clear and anicteric. No facial asymmetry. Chest: Lungs are clear to auscultation bilaterally. No wheezes or crackles. CV: Heart was regular rate and rhythm. Telemetry reviewed. Abd: Abdomen was soft. Nontender. Nondistended. Positive bowel sounds. Ext: No clubbing, cyanosis, or edema. 2+ DP pulses bilaterally. Neuro: Patient is alert and oriented x4. Strength is 5/5 in both upper and lower extremities. Cranial nerves 2-12 are intact. Speech is clear. Objective Data Vital Signs Vital Signs: Vital Signs - 24 hr 06/04/24 12:15 06/04/24 14:20 06/04/24 20:16 Temperature 97.2 F L Pulse Rate 61 58 L 60 Respiratory Rate 16 16 13 Blood Pressure 141/75 H 155/87 H Pulse Oximetry 97 97 95 Oxygen Delivery Room Air 06/04/24 21:13 06/04/24 22:09 06/04/24 22:09 Temperature 97.9 F Pulse Rate 71 71 71 Respiratory Rate 16 Blood Pressure 151/72 H Pulse Oximetry 94 Oxygen Delivery 06/05/24 00:00 06/05/24 00:00 06/05/24 04:00 Temperature 97 F L Pulse Rate 63 66 63 Respiratory Rate 18 Blood Pressure 160/72 H Pulse Oximetry 96 Oxygen Delivery 06/05/24 04:00 Temperature 97.6 F Pulse Rate 68 Respiratory Rate 18 Blood Pressure 131/72 Pulse Oximetry 97 Oxygen Delivery Intake/Output Intake/Output: Intake & Output 06/02/24 06/03/24 06/04/24 06/05/24 23:59 23:59 23:59 23:59 Intake Total 200 Balance 200 Meds/Results Medications: Active Medications Generic Name Dose Route Start Last Admin Trade Name Freq PRN Reason Stop Dose Admin Acetaminophen 650 mg 06/04/24 17:56 Acetaminophen 325 Mg Tablet PO Q4H PRN Mild Pain (1-3) or Fever Apixaban 5 mg 06/04/24 17:55 06/04/24 18:42 Apixaban 5 Mg Tablet PO 5 mg Q12HR ROWENA Administration Carvedilol 6.25 mg 06/04/24 21:40 06/04/24 22:09 Carvedilol 6.25 Mg Tablet PO 6.25 mg Q12HR ROWENA Administration Flecainide Acetate 50 mg 06/04/24 21:40 06/04/24 22:09 Flecainide Acetate 50 Mg Tablet PO 50 mg Q12HR ROWENA Administration Levothyroxine Sodium 25 mcg 06/05/24 06:30 06/05/24 05:41 Levothyroxine Sodium 25 Mcg Tablet BY MOUTH 25 mcg DAILY@0630 ROWENA Administration Lisinopril 40 mg 06/05/24 09:00 Lisinopril 20 Mg Tablet PO DAILY ROWENA Pantoprazole Sodium 40 mg 06/05/24 09:00 Pantoprazole 40 Mg Tablet PO QAM ROWENA Perflutren Lipid Microsphere 0 ml 06/04/24 19:13 Perflutren Lipid Microspheres 1.5 Ml Vial Diluted To 10 Ml Total Volume IV PUSH 06/07/24 19:14 ONCE PRN adequate visualization Protocol Pravastatin Sodium 20 mg 06/04/24 21:00 06/04/24 21:30 Pravastatin Sodium 20 Mg Tablet PO 20 mg HS ROWENA Administration Radiology Results: ITS Impressions Chest X-Ray 06/04/24 15:37 IMPRESSION: Borderline heart size Bilateral hyperinflation No active pulmonary disease Head/Neck CTA 06/04/24 16:47 IMPRESSION: 1. Stable extensive nonspecific cerebral white matter disease and pontine disease, which likely represents chronic small vessel ischemic disease. 2. No aneurysm or significant intracranial arterial stenosis. 3. 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 4. 0% stenosis of the proximal internal carotid arteries relative to normal distal artery lumen diameters (NASCET criteria). Labs Labs: Laboratory Results - last 24 hr 06/04/24 06/04/24 06/04/24 15:43 15:44 15:44 WBC 11.0 H RBC 4.32 Hgb 14.3 Hct 42.4 MCV 98.1 MCH 33.1 MCHC 33.7 RDW 11.9 Plt Count 239 MPV 8.7 Immature Gran % (Auto) 1.2 H Neut % (Auto) 66.0 Lymph % (Auto) 25.7 [place] % (Auto) 5.4 Eos % (Auto) 1.3 Baso % (Auto) 0.4 Lymph # (Auto) 2.81 [place] # (Auto) 0.6 Eos # (Auto) 0.1 Baso # (Auto) 0.0 Abs Immat Gran (auto) 0.13 H Absolute Neuts (auto) 7.2 H Absolute Nucleated RBC 0.000 Nucleated RBC % 0.0 PT 15.3 H INR 1.2 APTT 27.7 Sodium 140 Potassium 4.1 Chloride 103 Carbon Dioxide 28 Anion Gap 9 BUN 15 Creatinine 0.63 L Estim Creat Clear Calc 56 Estimated GFR > 60 Glucose 108 Calcium 9.5 Magnesium 2.0 Cancelled Total Bilirubin 0.9 AST 22 ALT 15 Alkaline Phosphatase 64 Total Protein 8.0 Albumin 4.5 TSH (Reflex) 1.660 Urine Color Yellow Urine Appearance Clear Urine pH 8.0 Ur Specific [place] 1.009 Urine Protein Negative Urine Glucose (UA) Negative Urine Ketones Negative Ur Blood (Man) Negative Urine Nitrate Negative Urine Bilirubin Negative Urine Urobilinogen 0.2 Leukocyte Esterase Rfl Negative 06/05/24 05:08 WBC 8.7 RBC 3.92 L Hgb 13.1 Hct 38.8 MCV 99.0 MCH 33.4 MCHC 33.8 RDW 12.0 Plt Count 221 MPV 8.9 Immature Gran % (Auto) 0.9 H Neut % (Auto) 56.8 Lymph % (Auto) 32.0 [place] % (Auto) 7.9 Eos % (Auto) 1.8 Baso % (Auto) 0.6 Lymph # (Auto) 2.78 [place] # (Auto) 0.7 H Eos # (Auto) 0.2 Baso # (Auto) 0.1 Abs Immat Gran (auto) 0.08 H Absolute Neuts (auto) 4.9 Absolute Nucleated RBC 0.000 Nucleated RBC % 0.0 PT INR APTT Sodium 140 Potassium 3.9 Chloride 106 Carbon Dioxide 27 Anion Gap 7 BUN 15 Creatinine 0.66 L Estim Creat Clear Calc 54 Estimated GFR > 60 Glucose 100 Calcium 9.1 Magnesium Total Bilirubin AST ALT Alkaline Phosphatase Total Protein Albumin TSH (Reflex) Urine Color Urine Appearance Urine pH Ur Specific [place] Urine Protein Urine Glucose (UA) Urine Ketones Ur Blood (Man) Urine Nitrate Urine Bilirubin Urine Urobilinogen Leukocyte Esterase Rfl Quality VTE Prophylaxis VTE prophylaxis: mechanical ordered and pharmacologic ordered
[2024-06-05] MEDS: carvediloL 6.25 MG TABLET PO ×2 (08:19→20:43)
[2024-06-05] MEDS: APIXABAN 5 MG TABLET PO ×2 (08:19→20:42)
[2024-06-05] MEDS: PANTOPRAZOLE 40 MG TABLET PO (08:19)
[2024-06-05 08:20] LABS: Cholesterol 178 mg/dL (0-200); HDL Direct 43 mg/dL; Triglycerides 134 mg/dL (<150)
[2024-06-05 08:30] LABS: LDL Cholesterol Direct 90 mg/dL
--- NOTE | 2024-06-05 08:43 | P.CONNEU_ITS ---
Assessment and Plan Assessment and plan (1) Brain TIA: Code(s): G45.9 - Transient cerebral ischemic attack, unspecified Status: Acute (2) Stenosis of left vertebral artery: Code(s): I65.02 - Occlusion and stenosis of left vertebral artery Status: Acute Plan 1. TIA 2. Normal MRI of the brain 3. Left thyroid 4mm nodule not clinically significant 4. 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 Severe cervical spondylosis 6. History of chronic atrial fibrillation for which patient is already anticoagulated with apixaban 5mg b.i.d. along with the other medications. Considering the age of the patient will continue the anticoagulation as such but needs to be explained to the family about the moderate arterial stenosis Could be 1 of the contributing factor. Orthostasis is being checked while she is in the hospital and pravastatin can be changed to40mg daily. Consult date: 06/05/24 HPI: Chikis Deal is a 84 year old female admitted to the hospital through the emergency room where she presented with an episode of left frontal headache along with lightheadedness, dizziness, and possibly speech changes. The whole symptomatology lasted for about 10 to 15 minutes ,family was concerned because they thought she had a left-sided facial droop. Her medications included carvedilol 6.25mg b.i.d., lisinopril 20mg each 2 tablets daily, finasteride 5mg daily and denosumab 60mg subQ every 6 months, she has history of paroxysmal atrial fibrillation, hypothyroidism, and hypertension, she has history of years smokes 12 with smoking pack years 6 but at present former smoker and currently only 1 drink per week for alcohol. Initial exam in the emergency room was grossly nonfocal, vital signs were normal, CBC was normal, BMP was normal, and routine lab was negative, chest x-ray with bilateral hyperinflation, CTA of the head and neck without aneurysm with moderate stenosis of proximal left vertebral artery, Review of Systems 2 Review of Systems: All systems reviewed & are unremarkable except as noted in HPI and below PMFSH Past Medical History Medical History Overweight with body mass index (BMI) of 28 to 28.9 in adult Cataract of right eye Maturing Chronic diastolic heart failure Last outpatient echo EF 60-65%, mild concentric left ventricular hypertrophy, impaired diastolic relaxation grade 1, mild mitral valve regurgitation, mild tricuspid regurgitation mild pulmonary regurgitation Paroxysmal atrial fibrillation Urge urinary incontinence Hypothyroidism Hyperlipidemia Essential hypertension Surgical History Surgical History History of bunionectomy of right great toe History of appendectomy (~1984) History of bladder suspension procedure (~1984) Family History Family History Father Heart disease Mother Emphysema of lung Sibling Ovarian cancer Carcinoma of colon Sibling Diabetes mellitus Bone cancer Daughter Lung cancer Daughter Cancer, metastatic Social History Social History Social History: The patient is independent activities of daily living. She is to her 2nd for the last 35 years. She has 1 living son. Her youngest daughter at age 51 from metastatic cervical cancer. Her oldest daughter in December of lung cancer. Code status: Full code currently. The patient would like to discuss options with her family before making a final decision. Surrogate decision maker: Carlo Sousa (son) Smoking packs per day: 0.5 Smoking cigarettes per day: 10.0 Years smoked: 12 Smoking pack-years: 6.00 Smoking status: Former smoker Tobacco type: cigarettes Second hand tobacco smoke exposure: No Alcohol intake: former Drinks per week: 1 Alcohol use details: She drinks a glass of wine from time to time Substance use: never Substance use type: does not use Do You Feel Safe in your Home?: Yes Lack of Transportation: No Lack of Food: Never True Current Housing: I Have Housing Concerned About Future Housing: No Difficulty Paying Gas/Electric Bills: No Difficulty Paying for Meds: No Currently Unemployed: No Education: High School Diploma/GED Difficulty w/ Childcare or Family Care: No Living arrangements: with family Occupation/Education: retired 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 [employer] Gender identity (if verbalized by the patient): Female Spiritual care concerns: No Meds Home Medications and Allergies Home Medications ?Medication ?Instructions ?Recorded ?Confirmed ?Type apixaban 5 mg tablet (Eliquis) 5 mg PO BID #2 tabs 04/16/20 06/04/24 Rx denosumab 60 mg/mL subcutaneous 60 mg subcut [id number] 10/15/20 06/04/24 History syringe (Prolia) ascorbic acid (vitamin C) 1,000 mg 1 g PO DAILY 08/10/21 06/04/24 History tablet cholecalciferol (vitamin D3) 125 125 mcg PO HS 08/10/21 06/04/24 History mcg (5,000 unit) capsule [id number] 8 mg-folic 400 1 tablet PO DAILY 08/10/21 06/04/24 History mcg-K 50 mcg-lutein 300 mcg tablet (Centrum Silver Women) flecainide 50 mg tablet 50 mg PO Q12H 10/22/21 06/04/24 History pantoprazole 40 mg tablet,delayed 40 mg PO QAM #90 tabs 08/03/23 06/04/24 Rx release pravastatin 20 mg tablet 20 mg PO HS #90 tabs 10/29/23 06/04/24 Rx levothyroxine 25 mcg tablet See Rx Instructions .Route 11/11/23 06/04/24 Rx .COMPLEX #90 tabs carvedilol 6.25 mg tablet 6.25 mg PO BID 01/05/24 06/04/24 History lisinopril 20 mg tablet 40 mg PO DAILY 01/05/24 06/04/24 History finasteride 5 mg tablet 5 mg PO ONCE 01/25/24 06/04/24 History tizanidine 2 mg tablet 2 mg PO TID PRN muscle spasticity 05/23/24 06/04/24 Rx #20 tabs Allergies Allergy/AdvReac Type Severity Reaction Status Date / Time codeine AdvReac Mild NAUSEA/DIZZ Verified 06/04/24 14:22 INESS Vital Signs Vital Signs - 24 hr 06/04/24 12:15 06/04/24 14:20 06/04/24 20:16 Temperature 36.2 C L Pulse Rate 61 58 L 60 Respiratory Rate 16 16 13 Blood Pressure 141/75 H 155/87 H Pulse Oximetry 97 97 95 Oxygen Delivery Room Air 06/04/24 21:13 06/04/24 22:09 06/04/24 22:09 Temperature 36.6 C Pulse Rate 71 71 71 Respiratory Rate 16 Blood Pressure 151/72 H Pulse Oximetry 94 Oxygen Delivery 06/05/24 00:00 06/05/24 00:00 06/05/24 04:00 Temperature 36.1 C L Pulse Rate 63 66 63 Respiratory Rate 18 Blood Pressure 160/72 H Pulse Oximetry 96 Oxygen Delivery 06/05/24 04:00 06/05/24 08:00 06/05/24 08:19 Temperature 36.4 C 36.6 C Pulse Rate 68 57 L 62 Respiratory Rate 18 18 Blood Pressure 131/72 136/60 Pulse Oximetry 97 97 Oxygen Delivery Exam 2 Narrative: Revealed her to be awake alert cooperative in no obvious acute distress, head normocephalic with no cranial bruits, ear nose throat examination normal, neck supple with no cervical bruit no thyromegaly no lymphadenopathy, lungs clear to auscultation with no rhonchi or crepitation, abdomen is soft with no organomegaly, extremities normal, neurological she is awake alert oriented x4 pupils round regular padgett of vision full extraocular movements full face symmetrical tongue midline uvula midline motor examination revealed normal strength and tone reflexes symmetrical and plantars downgoing Results Labs 06/05/24 05:08 06/05/24 05:08 Labs: Short CBC 06/04/24 06/05/24 Range/Units 15:44 05:08 WBC 11.0 H 8.7 (4.5-10.0) K/mm3 Hgb 14.3 13.1 (12.0-15.0) g/dL Hct 42.4 38.8 (37.0-47.0) % Plt Count 239 221 (150-375) k/mm3 BMP 06/04/24 06/05/24 15:44 05:08 Sodium 140 140 Potassium 4.1 3.9 Chloride 103 106 Carbon Dioxide 28 27 BUN 15 15 Creatinine 0.63 L 0.66 L Glucose 108 100 Calcium 9.5 9.1 Liver Function 06/04/24 Range/Units 15:44 Total Bilirubin 0.9 (0.2-1.3) mg/dL AST 22 (14-36) U/L ALT 15 (6-35) U/L Alkaline Phosphatase 64 (38-126) U/L Albumin 4.5 (3.5-5.1) g/dL Urine 06/04/24 Range/Units 15:43 Urine Color Yellow (Yellow) Urine Appearance Clear (Clear) Urine pH 8.0 (5.0-9.0) Ur Specific [place] 1.009 (1.001-1.035) Urine Protein Negative (Negative) mg/dL Urine Glucose (UA) Negative (Negative) mg/dL
[2024-06-05] MEDS: FLECAINIDE ACETATE 50 MG TABLET PO ×2 (10:44→20:43)
[2024-06-05] MEDS: PERFLUTREN LIPID MICROSPHERES 1.5 ML VIAL DILUTED TO 10 ML TOTAL VOLUME IV PUSH (15:20)
--- NOTE | 2024-06-05 15:46 | IVDEFINITY ---
Prior to administration of IV Definity the patient was educated on the risks and benefits of the imaging enhancing agent including potential adverse side effects. The patient verbalized understanding. Allergies were verified. No exclusion criteria were identified and at least one of the following inclusion criteria were met: 1) physician request, 2) patient technically difficult to image (per the [place] [employer]ocardi[employer] guidelines of two or more segments not discernable within the apical view), or 3) questionable left ventricular function. ?
[2024-06-05] MEDS: DEXTROMETHORPHAN POLISTIREX 60 MG/10 ML SYRINGE PO (16:22)
[2024-06-05] MEDS: PRAVASTATIN SODIUM 20 MG TABLET PO (20:42)
[2024-06-06] VITALS (15 sets, daily range): BP systolic 104–163; BP diastolic 62–81; PULSE 52–66; RESP 18–20; TEMP 36.3–36.7; O2SAT 92–96
[2024-06-06 05:31] LABS: Hematocrit 37.5 % (37.0-47.0); Hemoglobin 12.5 g/dL (12.0-15.0); Mean Corpuscular HGB Conc 33.3 g/dl (32-36); Mean Corpuscular Hemoglobin 33.2 pg (26-34); Mean Corpuscular Volume 99.5 fl (80-100); Mean Platelet Volume 8.9 fl (7.4-10.4); Platelet Count Result 209 k/mm3 (150-375); Red Blood Count 3.77 M/mm3 (4.2-5.4); Red Cell Distribution Width 11.9 % (11.5-14.5); White Blood Count 8.3 K/mm3 (4.5-10.0)
[2024-06-06] MEDS: LEVOTHYROXINE SODIUM 25 MCG TABLET BY MOUTH (05:46)
[2024-06-06 05:49] LABS: Alanine Aminotransferase 13 U/L (6-35); Albumin Level 3.6 g/dL (3.5-5.1); Alkaline Phosphatase 45 U/L (38-126); Anion Gap 10 mmol/L (4-12); Aspartate Amino Transferase 21 U/L (14-36); Blood Urea Nitrogen 16 mg/dL (7-17); Calcium 8.9 mg/dL (8.4-10.2); Carbon Dioxide 26 mmol/L (22-30); Chloride 104 mmol/L (98-107); Estimated CRCL calculation 54 ml/min; Estimated Glomerular Filt Rate > 60; Glucose 104 mg/dL (65-110); Potassium 4.4 mmol/L (3.4-5.0); Sodium 140 mmol/L (137-145)
[2024-06-06] MEDS: DEXTROMETHORPHAN POLISTIREX 60 MG/10 ML SYRINGE PO (05:52)
[2024-06-06] MEDS: APIXABAN 5 MG TABLET PO ×2 (08:17→21:38)
[2024-06-06] MEDS: carvediloL 6.25 MG TABLET PO ×2 (08:17→21:37)
[2024-06-06] MEDS: FLECAINIDE ACETATE 50 MG TABLET PO ×2 (08:18→21:38)
[2024-06-06] MEDS: lisinopriL 20 MG TABLET 40 MG PO (08:19)
[2024-06-06] MEDS: PANTOPRAZOLE 40 MG TABLET PO (08:19)
--- NOTE | 2024-06-06 10:36 | ECG_ITS ---
Test Date: 2024-06-06 11:04:36 Measurements Intervals [place] Rate: 59 P: 54 TX: 183 QRS: -43 QRSD: 118 T: 37 QT: 420 QTc: 416 Interpretive Statements SINUS BRADYCARDIA LEFT AXIS DEVIATION [QRS AXIS < -30] MODERATE VOLTAGE CRITERIA FOR LVH, CONSIDER NORMAL VARIANT [MEETS CRITERIA IN ONE OF: R(aVL), S(V1), R(V5), R(V5/V6)+S(V1)] Compared to ECG 06/04/2024 12:48:45 NO SIGNIFICANT CHANGES Electronically Signed On 06-06-2024 16:43:15 CDT by Oneyda Henry M.D.
--- NOTE | 2024-06-06 13:58 | P.CONCA_ITS ---
Assessment and Plan Assessment and plan (1) Brain TIA: Code(s): G45.9 - Transient cerebral ischemic attack, unspecified Status: Acute Plan 1. Possible PFO on bubble study 2. TIA 3. Paroxysmal atrial fibrillation 4. Chronic heart failure with preserved LVEF 5. Hypertension 6. Hyperlipidemia PLAN: -Bubble study shows possible PFO, for which we are consulted. This is most likely an incidental finding in her case. Brain MRI is negative for acute CVA. She is being treated for a TIA. PFO closure is not indicated in TIA; only indicated for an embolic CVA. In addition, even if she did have a CVA, not a candidate for PFO closure due to her age and need for anticoagulation. Therefore, no additional cardiac workup/testing recommended. -Continue Eliquis, Coreg, Flecainide for her PAF. -Continue other home cardiac meds. -Can follow up with her primary nurses aide, Dr. Guzman. Cardiology will sign off. History of Present Illness History of Present Illness Consult date/time: 06/06/24 13:58 Requesting physician: Anastacia Fair PA-C Consult reason: Other (PFO) Reason For Visit: Left frontal headache, TIA Narrative: We are consulted for PFO. Chikis is an 84 year old patient with paroxysmal atrial fibrillation, hypertension, hyperlipidemia, chronic diastolic heart failure who was admitted on 06/04 for a TIA. Brain MRI is negative for acute stroke. EKGs show sinus bradycardia. Echocardiogram with possible PFO based on bubble study, LVEF 60-65%. Review of Systems 2 Review of Systems: All systems reviewed & are unremarkable except as noted in HPI and below (HPI) [facility] Past Medical History Medical History Overweight with body mass index (BMI) of 28 to 28.9 in adult Cataract of right eye Maturing Chronic diastolic heart failure Last outpatient echo EF 60-65%, mild concentric left ventricular hypertrophy, impaired diastolic relaxation grade 1, mild mitral valve regurgitation, mild tricuspid regurgitation mild pulmonary regurgitation Paroxysmal atrial fibrillation Urge urinary incontinence Hypothyroidism Hyperlipidemia Essential hypertension Surgical History Surgical History History of bunionectomy of right great toe History of appendectomy (~1984) History of bladder suspension procedure (~1984) Family History Family History Father Heart disease Mother Emphysema of lung Sibling Ovarian cancer Carcinoma of colon Sibling Diabetes mellitus Bone cancer Daughter Lung cancer Daughter Cancer, metastatic Social History Social History Social History: The patient is independent activities of daily living. She is to her 2nd for the last 35 years. She has 1 living son. Her youngest daughter at age 51 from metastatic cervical cancer. Her oldest daughter in December of lung cancer. Code status: Full code currently. The patient would like to discuss options with her family before making a final decision. Surrogate decision maker: Carlo Sousa (son) Smoking packs per day: 0.5 Smoking cigarettes per day: 10.0 Years smoked: 12 Smoking pack-years: 6.00 Smoking status: Former smoker Tobacco type: cigarettes Second hand tobacco smoke exposure: No Alcohol intake: former Drinks per week: 1 Alcohol use details: She drinks a glass of wine from time to time Substance use: never Substance use type: does not use Do You Feel Safe in your Home?: Yes Lack of Transportation: No Lack of Food: Never True Current Housing: I Have Housing Concerned About Future Housing: No Difficulty Paying Gas/Electric Bills: No Difficulty Paying for Meds: No Currently Unemployed: No Education: High School Diploma/GED Difficulty w/ Childcare or Family Care: No Living arrangements: with family Occupation/Education: retired 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[employer] [facility] Gender identity (if verbalized by the patient): Female Spiritual care concerns: No Meds Home Medications and Allergies Home Medications ?Medication ?Instructions ?Recorded ?Confirmed ?Type apixaban 5 mg tablet (Eliquis) 5 mg PO BID #2 tabs 04/16/20 06/04/24 Rx denosumab 60 mg/mL subcutaneous 60 mg subcut [id number] 10/15/20 06/04/24 History syringe (Prolia) ascorbic acid (vitamin C) 1,000 mg 1 g PO DAILY 08/10/21 06/04/24 History tablet cholecalciferol (vitamin D3) 125 125 mcg PO HS 08/10/21 06/04/24 History mcg (5,000 unit) capsule [id number] 8 mg-folic 400 1 tablet PO DAILY 08/10/21 06/04/24 History mcg-K 50 mcg-lutein 300 mcg tablet (Centrum Silver Women) flecainide 50 mg tablet 50 mg PO Q12H 10/22/21 06/04/24 History pantoprazole 40 mg tablet,delayed 40 mg PO QAM #90 tabs 08/03/23 06/04/24 Rx release pravastatin 20 mg tablet 20 mg PO HS #90 tabs 10/29/23 06/04/24 Rx levothyroxine 25 mcg tablet See Rx Instructions .Route 11/11/23 06/04/24 Rx .COMPLEX #90 tabs carvedilol 6.25 mg tablet 6.25 mg PO BID 01/05/24 06/04/24 History lisinopril 20 mg tablet 40 mg PO DAILY 01/05/24 06/04/24 History finasteride 5 mg tablet 5 mg PO ONCE 01/25/24 06/04/24 History tizanidine 2 mg tablet 2 mg PO TID PRN muscle spasticity 05/23/24 06/04/24 Rx #20 tabs Allergies Allergy/AdvReac Type Severity Reaction Status Date / Time codeine AdvReac Mild NAUSEA/DIZZ Verified 06/04/24 14:22 INESS Vital Signs Vital Signs - 24 hr 06/05/24 15:58 06/05/24 16:00 06/05/24 16:00 Temperature 36.7 C 36.7 C Pulse Rate 60 60 59 L Respiratory Rate 18 18 Blood Pressure 120/68 120/68 Pulse Oximetry 95 95 Oxygen Delivery 06/05/24 20:00 06/05/24 20:43 06/05/24 20:43 Temperature 36.9 C Pulse Rate 65 68 68 Respiratory Rate 20 Blood Pressure 115/49 L Pulse Oximetry 94 Oxygen Delivery 06/05/24 21:35 06/05/24 23:36 06/06/24 00:00 Temperature 36.6 C Pulse Rate 59 L 65 53 L Respiratory Rate 20 Blood Pressure 130/54 L Pulse Oximetry 96 Oxygen Delivery 06/06/24 03:08 06/06/24 04:00 06/06/24 08:00 Temperature 36.6 C 36.4 C Pulse Rate 56 L 54 L 58 L Respiratory Rate 20 18 Blood Pressure 120/62 144/81 H Pulse Oximetry 96 96 Oxygen Delivery 06/06/24 08:00 06/06/24 08:17 06/06/24 08:18 Temperature 36.4 C Pulse Rate 58 L 66 66 Respiratory Rate 18 Blood Pressure 104/63 Pulse Oximetry 95 Oxygen Delivery 06/06/24 08:19 06/06/24 08:19 06/06/24 08:19 Temperature Pulse Rate 66 66 52 L Respiratory Rate 20 Blood Pressure Pulse Oximetry 96 96 Oxygen Delivery Room Air 06/06/24 08:49 06/06/24 10:07 06/06/24 10:10 Temperature 36.4 C 36.3 C L Pulse Rate 58 L 63 Respiratory Rate 18 18 Blood Pressure 140/63 116/63 Pulse Oximetry 95 96 Oxygen Delivery Room Air 06/06/24 10:11 06/06/24 12:00 Temperature 36.4 C Pulse Rate 58 L 58 L Respiratory Rate 18 Blood Pressure 144/81 H Pulse Oximetry 96 Oxygen Delivery Exam 2 Const: General: comfortable and no acute distress HENMT: Mouth: Yes moist mucous membranes Eyes: General: appearance normal, both eyes and all related structures S clera: sclerae normal Resp: Effort & Inspection: normal respiratory effort Cardio: Rate: regular rate Rhythm: regular rhythm Heart sounds: no murmurs Skin: General skin exam: normal color Neuro: Speech: normal speech Psych: Mental Status: mental status grossly normal Affect: normal affect Results Labs and Meds 06/06/24 05:13 06/06/24 05:13 Lab results: Cardiac Enzymes 06/06/24 Range/Units 05:13 AST 21 (14-36) U/L CBC 06/06/24 Range/Units 05:13 WBC 8.3 (4.5-10.0) K/mm3 RBC 3.77 L (4.2-5.4) M/mm3 Hgb 12.5 (12.0-15.0) g/dL Hct 37.5 (37.0-47.0) % Plt Count 209 (150-375) k/mm3 Comprehensive Metabolic Panel 06/06/24 Range/Units 05:13 Sodium 140 (137-145) mmol/L Potassium 4.4 (3.4-5.0) mmol/L Chloride 104 (98-107) mmol/L Carbon Dioxide 26 (22-30) mmol/L BUN 16 (7-17) mg/dL Creatinine 0.66 L (0.7-1.0) mg/dL Glucose 104 (65-110) mg/dL Calcium 8.9 (8.4-10.2) mg/dL AST 21 (14-36) U/L ALT 13 (6-35) U/L Alkaline Phosphatase 45 (38-126) U/L Total Protein 6.0 L (6.3-8.2) g/dL Albumin 3.6 (3.5-5.1) g/dL Intake and Output 06/05/24 06/06/24 06/06/24 23:59 07:59 15:59 Intake Total 540 290 240 Output Total 300 Balance 540 -10 240 Intake: Oral 540 290 240 Output: Urine 300 Other: # Unmeasured Voids 1
--- NOTE | 2024-06-06 14:53 | P.PNIM_ITS ---
Progress Note: A&P Assessment and Plan (1) Dizziness: Code(s): R42 - Dizziness and giddiness Status: Acute Assessment and Plan: Per chart review patient developed dizziness and felt she was going to pass out Possible etiologies include bradycardia given HR 50s on EKG, arrhythmia (hx afib), orthostatic hypotension, tia vs stroke - Orthostatic blood pressure positive - Lipid pane ordered, increased pravastatin to 40 mg daily. Remains on eliquis for anticoagulation. - EKG sinus bradycardia - Chest XR: Borderline heart size with bilateral hyperinflation. No active pulmonary disease. - Head/neck CTA: Stable extensive nonspecific cerebral white matter disease and pontine disease, which likely represents chronic small vessel ischemic disease.No aneurysm or significant intracranial arterial stenosis.Moderate stenosis of proximal left vertebral artery. 0% stenosis of the proximal internal carotid arteries - MRI: No acute intracranial process, no enhancing lesions, disc protrusion at the level of C3-4. - Echo: LVEF 60-65% with grade I diastolic dysfunction and suspected PFO Cardiology consulted, no additional cardiology work up recommended - Monitor CBC, CMP, magnesium, troponin, and lipid profile - Monitor blood pressure - Telemetry monitoring. HR 50-70s, patient asymptomatic denying dizziness/lightheadedness. - Monitor blood glucose - PT/OT eval and treat - Neurology consulted, appreciate assistance and recommendations Considering the age of the patient will continue the anticoagulation Needs to be explained to the family about the moderate arterial stenosis could be one of the contributing factor. Orthostasis is being checked while she is in the hospital Pravastatin can be changed to 40mg daily. She states that she once again is feeling off and heavy . She is endorsing tingling/numbness to her jaw and both hands up to her wrist. Repeat head CT: Stable extensive nonspecific cerebral white matter disease, which likely represents chronic small vessel ischemic disease. (2) Afib: Qualifiers: Atrial fibrillation type: unspecified chronic Qualified Code(s): I48.20 - Chronic atrial fibrillation, unspecified Code(s): I48.91 - Unspecified atrial fibrillation Status: Acute Assessment and Plan: EKG showing sinus bradycardia HR 56 Rate controlled with carvedilol 6.25 BID and flecainide 50 mg BID Anticoagulated with Eliquis 5 mg BID Tele (3) Hypothyroidism: Qualifiers: Hypothyroidism type: unspecified Qualified Code(s): E03.9 - Hypothyroidism, unspecified Code(s): E03.9 - Hypothyroidism, unspecified Status: Acute Assessment and Plan: Restart Synthroid 25 mcg daily TSH WNL (4) Essential hypertension: Code(s): I10 - Essential (primary) hypertension Status: Acute Assessment and Plan: Chronic Continue carvedilol 6.25 and lisinopril 40 mg daily Blood pressures remain stable, continue to monitor (5) Chronic diastolic heart failure: Code(s): I50.32 - Chronic diastolic (congestive) heart failure Status: Acute Assessment and Plan: Patient not on diuretics, euvolemic (6) Hyperlipidemia: Qualifiers: Hyperlipidemia type: unspecified Qualified Code(s): E78.5 - Hyperlipidemia, unspecified Code(s): E78.5 - Hyperlipidemia, unspecified Status: Acute Assessment and Plan: Pravastatin dose increased to 40 mg daily per Neurology Time Spent With Patient Time with patient: 25 - 35 minutes Subjective Date/time seen: 06/06/24 14:53 Interval history: 84-year-old female past medical history of hypertension, hypothyroidism, hyperlipidemia, and chronic diastolic heart failure presents the hospital for dizziness and lightheadedness. Patient is pleasant sitting up comfortably in her chair. She states that she once again is feeling off and heavy . She is endorsing tingling/numbness to her jaw and both hands up to her wrist. She has no other complaints denying visions changes, chest pain, palpitations, shortness of breath, nausea/vomiting and abdominal pain. Review of Systems Review of Systems: All systems reviewed & are unremarkable except as noted in HPI and below Exam Narrative: AF HR 58 RR 18 SPO2 94 BP 139/65 General: female in no acute respiratory distress who is nontoxic appearing, lying semi recumbent in bed. HEENT: Normocephalic. Atraumatic. PERRLA. Extraocular movement intact. Sclera clear and anicteric. No facial asymmetry. Chest: Lungs are clear to auscultation bilaterally. No wheezes or crackles. CV: Heart was regular rate and rhythm. Telemetry reviewed. Abd: Abdomen was soft. Nontender. Nondistended. Positive bowel sounds. Ext: No clubbing, cyanosis, or edema. 2+ DP pulses bilaterally. Neuro: Patient is alert and oriented x4. Strength is 5/5 in both upper and lower extremities. Cranial nerves 2-12 are intact. Speech is clear. Objective Data Vital Signs Vital Signs: Vital Signs - 24 hr 06/05/24 15:58 06/05/24 16:00 06/05/24 16:00 Temperature 98.1 F 98.1 F Pulse Rate 60 60 59 L Respiratory Rate 18 18 Blood Pressure 120/68 120/68 Pulse Oximetry 95 95 Oxygen Delivery 06/05/24 20:00 06/05/24 20:43 06/05/24 20:43 Temperature 98.4 F Pulse Rate 65 68 68 Respiratory Rate 20 Blood Pressure 115/49 L Pulse Oximetry 94 Oxygen Delivery 06/05/24 21:35 06/05/24 23:36 06/06/24 00:00 Temperature 97.9 F Pulse Rate 59 L 65 53 L Respiratory Rate 20 Blood Pressure 130/54 L Pulse Oximetry 96 Oxygen Delivery 06/06/24 03:08 06/06/24 04:00 06/06/24 08:00 Temperature 97.9 F 97.6 F Pulse Rate 56 L 54 L 58 L Respiratory Rate 20 18 Blood Pressure 120/62 144/81 H Pulse Oximetry 96 96 Oxygen Delivery 06/06/24 08:00 06/06/24 08:17 06/06/24 08:18 Temperature 97.6 F Pulse Rate 58 L 66 66 Respiratory Rate 18 Blood Pressure 104/63 Pulse Oximetry 95 Oxygen Delivery 06/06/24 08:19 06/06/24 08:19 06/06/24 08:19 Temperature Pulse Rate 66 66 52 L Respiratory Rate 20 Blood Pressure Pulse Oximetry 96 96 Oxygen Delivery Room Air 06/06/24 08:49 06/06/24 10:07 06/06/24 10:10 Temperature 97.6 F 97.4 F L Pulse Rate 58 L 63 Respiratory Rate 18 18 Blood Pressure 140/63 116/63 Pulse Oximetry 95 96 Oxygen Delivery Room Air 06/06/24 10:11 06/06/24 12:00 06/06/24 12:00 Temperature 97.6 F 97.5 F L Pulse Rate 58 L 58 L 58 L Respiratory Rate 18 18 Blood Pressure 144/81 H 139/65 Pulse Oximetry 96 94 Oxygen Delivery Intake/Output Intake/Output: Intake & Output 06/03/24 06/04/24 06/05/24 06/06/24 23:59 23:59 23:59 23:59 Intake Total 1460 770 Output Total 300 Balance 1460 470 Meds/Results Medications: Active Medications Generic Name Dose Route Start Last Admin Trade Name Freq PRN Reason Stop Dose Admin Acetaminophen 650 mg 06/04/24 17:56 Acetaminophen 325 Mg Tablet PO Q4H PRN Mild Pain (1-3) or Fever Apixaban 5 mg 06/04/24 17:55 06/06/24 08:17 Apixaban 5 Mg Tablet PO 5 mg Q12HR ROWENA Administration Carvedilol 6.25 mg 06/04/24 21:40 06/06/24 08:17 Carvedilol 6.25 Mg Tablet PO 6.25 mg Q12HR ROWENA Administration Dextromethorphan Polistirix 60 mg 06/05/24 15:41 06/06/24 05:52 Dextromethorphan Polistirex 60 Mg/10 Ml Syringe PO 60 mg Q12H PRN Administration Cough Flecainide Acetate 50 mg 06/04/24 21:40 06/06/24 08:18 Flecainide Acetate 50 Mg Tablet PO 50 mg Q12HR ROWENA Administration Levothyroxine Sodium 25 mcg 06/05/24 06:30 06/06/24 05:46 Levothyroxine Sodium 25 Mcg Tablet BY MOUTH 25 mcg DAILY@0630 ROWENA Administration Lisinopril 40 mg 06/05/24 09:00 06/06/24 08:19 Lisinopril 20 Mg Tablet PO 40 mg DAILY ROWENA Administration Pantoprazole Sodium 40 mg 06/05/24 09:00 06/06/24 08:19 Pantoprazole 40 Mg Tablet PO 40 mg QAM [facility] Administration Pravastatin Sodium 40 mg 06/06/24 21:00 Pravastatin Sodium 20 Mg Tablet PO HS [facility] Radiology Results: ITS Impressions Chest X-Ray 06/04/24 15:37 IMPRESSION: Borderline heart size Bilateral hyperinflation No active pulmonary disease Head/Neck CTA 06/04/24 16:47 IMPRESSION: 1. Stable extensive nonspecific cerebral white matter disease and pontine disease, which likely represents chronic small vessel ischemic disease. 2. No aneurysm or significant intracranial arterial stenosis. 3. 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 4. 0% stenosis of the proximal internal carotid arteries relative to normal distal artery lumen diameters (NASCET criteria). Brain MRI 06/05/24 12:47 IMPRESSION: 1. No acute intracranial process. 2. No enhancing lesions seen. 3. Disc protrusion at the level of C3-C4. Head CT 06/06/24 10:49 IMPRESSION: 1. Stable extensive nonspecific cerebral white matter disease, which likely represents chronic small vessel ischemic disease. Labs Labs: Laboratory Results - last 24 hr 06/06/24 05:13 WBC 8.3 RBC 3.77 L Hgb 12.5 Hct 37.5 MCV 99.5 MCH 33.2 MCHC 33.3 RDW 11.9 Plt Count 209 MPV 8.9 Sodium 140 Potassium 4.4 Chloride 104 Carbon Dioxide 26 Anion Gap 10 BUN 16 Creatinine 0.66 L Estim Creat Clear Calc 54 Estimated GFR > 60 Glucose 104 Calcium 8.9 Total Bilirubin 1.0 AST 21 ALT 13 Alkaline Phosphatase 45 Total Protein 6.0 L Albumin 3.6 Quality VTE Prophylaxis VTE prophylaxis: mechanical ordered and pharmacologic ordered
[2024-06-06] MEDS: PRAVASTATIN SODIUM 20 MG TABLET 40 MG PO (21:38)
[2024-06-07] VITALS (7 sets, daily range): BP systolic 132–160; BP diastolic 61–74; PULSE 51–70; RESP 18; TEMP 36.5–36.7; O2SAT 92–100
[2024-06-07] MEDS: LEVOTHYROXINE SODIUM 25 MCG TABLET BY MOUTH (05:13)
[2024-06-07 05:20] LABS: Hematocrit 37.3 % (37.0-47.0); Hemoglobin 12.3 g/dL (12.0-15.0); Mean Corpuscular Hemoglobin 32.6 pg (26-34); Mean Corpuscular Volume 98.9 fl (80-100); Platelet Count Result 221 k/mm3 (150-375); Red Blood Count 3.77 M/mm3 (4.2-5.4); Red Cell Distribution Width 11.9 % (11.5-14.5); White Blood Count 7.8 K/mm3 (4.5-10.0)
[2024-06-07 05:27] LABS: Alanine Aminotransferase 14 U/L (6-35); Albumin Level 3.7 g/dL (3.5-5.1); Alkaline Phosphatase 45 U/L (38-126); Anion Gap 8 mmol/L (4-12); Aspartate Amino Transferase 19 U/L (14-36); Bilirubin,Total 0.8 mg/dL (0.2-1.3); Blood Urea Nitrogen 16 mg/dL (7-17); Calcium 8.9 mg/dL (8.4-10.2); Carbon Dioxide 26 mmol/L (22-30); Chloride 106 mmol/L (98-107); Estimated CRCL calculation 55 ml/min; Estimated Glomerular Filt Rate > 60; Glucose 100 mg/dL (65-110); Potassium 4.1 mmol/L (3.4-5.0); Sodium 140 mmol/L (137-145)
[2024-06-07] MEDS: APIXABAN 5 MG TABLET PO (08:13)
[2024-06-07] MEDS: carvediloL 6.25 MG TABLET PO (08:13)
[2024-06-07] MEDS: PANTOPRAZOLE 40 MG TABLET PO (08:13)
[2024-06-07] MEDS: FLECAINIDE ACETATE 50 MG TABLET PO (08:13)
[2024-06-07] MEDS: lisinopriL 20 MG TABLET 40 MG PO (08:13)
--- NOTE | 2024-06-07 08:31 | P.PNIM_ITS ---
Progress Note: A&P Assessment and Plan (1) Dizziness: Code(s): R42 - Dizziness and giddiness Status: Acute Assessment and Plan: Per chart review patient developed dizziness and felt she was going to pass out Possible etiologies include bradycardia given HR 50s on EKG, arrhythmia (hx afib), orthostatic hypotension, tia vs stroke - Orthostatic blood pressure positive - Lipid pane ordered, increased pravastatin to 40 mg daily. Remains on eliquis for anticoagulation. - EKG sinus bradycardia - Chest XR: Borderline heart size with bilateral hyperinflation. No active pulmonary disease. - Head/neck CTA: Stable extensive nonspecific cerebral white matter disease and pontine disease, which likely represents chronic small vessel ischemic disease.No aneurysm or significant intracranial arterial stenosis.Moderate stenosis of proximal left vertebral artery. 0% stenosis of the proximal internal carotid arteries - MRI: No acute intracranial process, no enhancing lesions, disc protrusion at the level of C3-4. - Echo: LVEF 60-65% with grade I diastolic dysfunction and suspected PFO Cardiology consulted, no additional cardiology work up recommended - Monitor CBC, CMP, magnesium, troponin, and lipid profile - Monitor blood pressure - Telemetry monitoring. HR 50-70s, patient asymptomatic denying dizziness/lightheadedness. - Monitor blood glucose - PT/OT eval and treat - Neurology consulted, appreciate assistance and recommendations Considering the age of the patient will continue the anticoagulation Needs to be explained to the family about the moderate arterial stenosis could be one of the contributing factor. Orthostasis is being checked while she is in the hospital Pravastatin can be changed to 40mg daily. She states that she once again is feeling off and heavy . She is endorsing tingling/numbness to her jaw and both hands up to her wrist. Repeat head CT: Stable extensive nonspecific cerebral white matter disease, which likely represents chronic small vessel ischemic disease. (2) Afib: Qualifiers: Atrial fibrillation type: unspecified chronic Qualified Code(s): I48.20 - Chronic atrial fibrillation, unspecified Code(s): I48.91 - Unspecified atrial fibrillation Status: Acute Assessment and Plan: EKG showing sinus bradycardia HR 56 Rate controlled with carvedilol 6.25 BID and flecainide 50 mg BID Anticoagulated with Eliquis 5 mg BID Tele - pt is fall/bleeding risk (3) Hypothyroidism: Qualifiers: Hypothyroidism type: unspecified Qualified Code(s): E03.9 - Hypothyroidism, unspecified Code(s): E03.9 - Hypothyroidism, unspecified Status: Acute Assessment and Plan: Restart Synthroid 25 mcg daily TSH WNL (4) Essential hypertension: Code(s): I10 - Essential (primary) hypertension Status: Acute Assessment and Plan: Chronic Continue carvedilol 6.25 and lisinopril 40 mg daily Blood pressures remain stable, continue to monitor (5) Chronic diastolic heart failure: Code(s): I50.32 - Chronic diastolic (congestive) heart failure Status: Acute Assessment and Plan: Patient not on diuretics, euvolemic stable- will monitoe i/o, VS (6) Hyperlipidemia: Qualifiers: Hyperlipidemia type: unspecified Qualified Code(s): E78.5 - Hyperlipidemia, unspecified Code(s): E78.5 - Hyperlipidemia, unspecified Status: Acute Assessment and Plan: Pravastatin dose increased to 40 mg daily per Neurology Time Spent With Patient Time with patient: 25 - 35 minutes Subjective Date/time seen: 06/07/24 08:31 Interval history: 84-year-old female past medical history of hypertension, hypothyroidism, hyperlipidemia, and chronic diastolic heart failure presents the hospital for dizziness and lightheadedness. Assuming care. Pt is seen and examined. Still c/o tingling/numbness to her jaw and both hands up to her wrist. She is denying visions changes, chest pain, palpitations, shortness of breath, nausea/vomiting and abdominal pain. Labs reviewed and stable. Review of Systems Review of Systems: 12 systems were reviewed and are negativ e except for as per HPI. All systems reviewed & are unremarkable except as noted in HPI and below Exam Narrative: General: female in no acute respiratory distress who is nontoxic appearing, lying semi recumbent in bed. HEENT: Normocephalic. Atraumatic. PERRLA. Extraocular movement intact. Sclera clear and anicteric. No facial asymmetry. Chest: Lungs are clear to auscultation bilaterally. No wheezes or crackles. CV: Heart was regular rate and rhythm. Telemetry reviewed. Abd: Abdomen was soft. Nontender. Nondistended. Positive bowel sounds. Ext: No clubbing, cyanosis, or edema. 2+ DP pulses bilaterally. Neuro: Patient is alert and oriented x4. Strength is 5/5 in both upper and lower extremities. Cranial nerves 2-12 are intact. Speech is clear. Const: General: comfortable Objective Data Vital Signs Vital Signs: Vital Signs - 24 hr 06/06/24 08:49 06/06/24 10:07 06/06/24 10:10 Temperature 97.6 F 97.4 F L Pulse Rate 58 L 63 Respiratory Rate 18 18 Blood Pressure 140/63 116/63 Pulse Oximetry 95 96 Oxygen Delivery Room Air 06/06/24 10:11 06/06/24 12:00 06/06/24 12:00 Temperature 97.6 F 97.5 F L Pulse Rate 58 L 58 L 58 L Respiratory Rate 18 18 Blood Pressure 144/81 H 139/65 Pulse Oximetry 96 94 Oxygen Delivery 06/06/24 16:00 06/06/24 16:00 06/06/24 20:00 Temperature 98.0 F 97.8 F Pulse Rate 57 L 58 L 53 L Respiratory Rate 18 18 Blood Pressure 146/78 H 163/77 H Pulse Oximetry 94 92 Oxygen Delivery 06/06/24 20:00 06/06/24 21:32 06/06/24 21:37 Temperature Pulse Rate 61 53 L Respiratory Rate Blood Pressure Pulse Oximetry Oxygen Delivery Room Air 06/06/24 21:38 06/07/24 00:00 06/07/24 00:00 Temperature 97.9 F Pulse Rate 53 L 61 69 Respiratory Rate 18 Blood Pressure 135/74 Pulse Oximetry 92 Oxygen Delivery 06/07/24 04:00 06/07/24 04:00 06/07/24 07:36 Temperature 97.9 F 97.8 F Pulse Rate 51 L 60 58 L Respiratory Rate 18 18 Blood Pressure 160/71 H 150/62 H Pulse Oximetry 97 97 Oxygen Delivery 06/07/24 07:36 06/07/24 07:37 06/07/24 08:13 Temperature 97.7 F 97.8 F Pulse Rate 60 64 64 Respiratory Rate 18 18 Blood Pressure 150/71 H 132/66 Pulse Oximetry 100 98 Oxygen Delivery 06/07/24 08:13 Temperature Pulse Rate 64 Respiratory Rate Blood Pressure Pulse Oximetry Oxygen Delivery Intake/Output Intake/Output: Intake & Output 06/04/24 06/05/24 06/06/24 06/07/24 23:59 23:59 23:59 23:59 Intake Total 1460 1010 350 Output Total 300 1100 Balance 1460 710 -750 Meds/Results Medications: Active Medications Generic Name Dose Route Start Last Admin Trade Name Freq PRN Reason Stop Dose Admin Acetaminophen 650 mg 06/04/24 17:56 Acetaminophen 325 Mg Tablet PO Q4H PRN Mild Pain (1-3) or Fever Apixaban 5 mg 06/04/24 17:55 06/07/24 08:13 Apixaban 5 Mg Tablet PO 5 mg Q12HR ROWENA Administration Carvedilol 6.25 mg 06/04/24 21:40 06/07/24 08:13 Carvedilol 6.25 Mg Tablet PO 6.25 mg Q12HR ROWENA Administration Dextromethorphan Polistirix 60 mg 06/05/24 15:41 06/06/24 05:52 Dextromethorphan Polistirex 60 Mg/10 Ml Syringe PO 60 mg Q12H PRN Administration Cough Flecainide Acetate 50 mg 06/04/24 21:40 06/07/24 08:13 Flecainide Acetate 50 Mg Tablet PO 50 mg Q12HR ROWENA Administration Levothyroxine Sodium 25 mcg 06/05/24 06:30 06/07/24 05:13 Levothyroxine Sodium 25 Mcg Tablet BY MOUTH 25 mcg DAILY@0630 ROWENA Administration Lisinopril 40 mg 06/05/24 09:00 06/07/24 08:13 Lisinopril 20 Mg Tablet PO 40 mg DAILY ROWENA Administration Pantoprazole Sodium 40 mg 06/05/24 09:00 06/07/24 08:13 Pantoprazole 40 Mg Tablet PO 40 mg QAM ROWENA Administration Pravastatin Sodium 40 mg 06/06/24 21:00 06/06/24 21:38 Pravastatin Sodium 20 Mg Tablet PO 40 mg HS ROWENA Administration Radiology Results: ITS Impressions Chest X-Ray 06/04/24 15:37 IMPRESSION: Borderline heart size Bilateral hyperinflation No active pulmonary disease Head/Neck CTA 06/04/24 16:47 IMPRESSION: 1. Stable extensive nonspecific cerebral white matter disease and pontine disease, which likely represents chronic small vessel ischemic disease. 2. No aneurysm or significant intracranial arterial stenosis. 3. 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 4. 0% stenosis of the proximal internal carotid arteries relative to normal distal artery lumen diameters (NASCET criteria). Brain MRI 06/05/24 12:47 IMPRESSION: 1. No acute intracranial process. 2. No enhancing lesions seen. 3. Disc protrusion at the level of C3-C4. Head CT 06/06/24 10:49 IMPRESSION: 1. Stable extensive nonspecific cerebral white matter disease, which likely represents chronic small vessel ischemic disease. Labs Labs: Laboratory Results - last 24 hr 06/07/24 04:42 WBC 7.8 RBC 3.77 L Hgb 12.3 Hct 37.3 MCV 98.9 MCH 32.6 MCHC 33.0 RDW 11.9 Plt Count 221 MPV 9.0 Sodium 140 Potassium 4.1 Chloride 106 Carbon Dioxide 26 Anion Gap 8 BUN 16 Creatinine 0.64 L Estim Creat Clear Calc 55 Estimated GFR > 60 Glucose 100 Calcium 8.9 Total Bilirubin 0.8 AST 19 ALT 14 Alkaline Phosphatase 45 Total Protein 6.0 L Albumin 3.7 Quality VTE Prophylaxis VTE prophylaxis: mechanical ordered and pharmacologic ordered
--- NOTE | 2024-06-07 14:45 | PM.DS ---
DS: Admitting Diagnosis Discharge Date 06/07 Admitting Diagnosis dizziness DS: Discharge Diagnosis Discharge Diagnosis (1) Dizziness: Code(s): R42 - Dizziness and giddiness Status: Acute (2) Afib: Qualifiers: Atrial fibrillation type: unspecified chronic Qualified Code(s): I48.20 - Chronic atrial fibrillation, unspecified Code(s): I48.91 - Unspecified atrial fibrillation Status: Acute (3) Hypothyroidism: Qualifiers: Hypothyroidism type: unspecified Qualified Code(s): E03.9 - Hypothyroidism, unspecified Code(s): E03.9 - Hypothyroidism, unspecified Status: Acute (4) Essential hypertension: Code(s): I10 - Essential (primary) hypertension Status: Acute (5) Chronic diastolic heart failure: Code(s): I50.32 - Chronic diastolic (congestive) heart failure Status: Acute (6) Hyperlipidemia: Qualifiers: Hyperlipidemia type: unspecified Qualified Code(s): E78.5 - Hyperlipidemia, unspecified Code(s): E78.5 - Hyperlipidemia, unspecified Status: Acute DS: Summary Hospital Course Hospital Course: 84-year-old female past medical history of hypertension, hypothyroidism, hyperlipidemia, and chronic diastolic heart failure presents the hospital for dizziness and lightheadedness. Several issues were addressed: # dizziness Per chart review patient developed dizziness and felt she was going to pass out Possible etiologies include bradycardia given HR 50s on EKG, arrhythmia (hx afib), orthostatic hypotension, tia vs stroke - Orthostatic blood pressure positive - Lipid pane ordered, increased pravastatin to 40 mg daily. Remains on eliquis for anticoagulation. - EKG sinus bradycardia - Chest XR: Borderline heart size with bilateral hyperinflation. No active pulmonary disease. - Head/neck CTA: Stable extensive nonspecific cerebral white matter disease and pontine disease, which likely represents chronic small vessel ischemic disease.No aneurysm or significant intracranial arterial stenosis.Moderate stenosis of proximal left vertebral artery. 0% stenosis of the proximal internal carotid arteries - MRI: No acute intracranial process, no enhancing lesions, disc protrusion at the level of C3-4. - Echo: LVEF 60-65% with grade I diastolic dysfunction and suspected PFO Cardiology consulted, no additional cardiology work up recommended - Monitor CBC, CMP, magnesium, troponin, and lipid profile - Monitor blood pressure - Telemetry monitoring. HR 50-70s, patient asymptomatic denying dizziness/lightheadedness. - Monitor blood glucose - PT/OT eval and treat - Neurology consulted, appreciate assistance and recommendations Considering the age of the patient will continue the anticoagulation Needs to be explained to the family about the moderate arterial stenosis could be one of the contributing factor. Orthostasis is being checked while she is in the hospital Pravastatin can be changed to 40mg daily. Repeat head CT: Stable extensive nonspecific cerebral white matter disease, which likely represents chronic small vessel ischemic disease. She is better today. # afib Rate controlled with carvedilol 6.25 BID and flecainide 50 mg BID Anticoagulated with Eliquis 5 mg BID stable -no changes in regimen # Hypothyroidism: Restart Synthroid 25 mcg daily TSH WNL # Hyperlipidemia Pravastatin dose increased to 40 mg daily per Neurology Status at Discharge Functional status at discharge: independent ambulation Time Spent with Patient Time attestation: Total time spent providing and/or coordinating discharge services: Time spent: Greater than 30 minutes Exam Narrative: General: female in no acute respiratory distress who is nontoxic appearing, lying semi recumbent in bed. HEENT: Normocephalic. Atraumatic. PERRLA. Extraocular movement intact. Sclera clear and anicteric. No facial asymmetry. Chest: Lungs are clear to auscultation bilaterally. No wheezes or crackles. CV: Heart was regular rate and rhythm. Telemetry reviewed. Abd: Abdomen was soft. Nontender. Nondistended. Positive bowel sounds. Ext: No clubbing, cyanosis, or edema. 2+ DP pulses bilaterally. Neuro: Patient is alert and oriented x4. Strength is 5/5 in both upper and lower extremities. Cranial nerves 2-12 are intact. Speech is clear. Const: General: comfortable DS: Data Data Completed and Pending Labs on day of discharge: Labs from last 24 hours 06/07/24 04:42 WBC 7.8 RBC 3.77 L Hgb 12.3 Hct 37.3 MCV 98.9 MCH 32.6 MCHC 33.0 RDW 11.9 Plt Count 221 MPV 9.0 Sodium 140 Potassium 4.1 Chloride 106 Carbon Dioxide 26 Anion Gap 8 BUN 16 Creatinine 0.64 L Estim Creat Clear Calc 55 Estimated GFR > 60 Glucose 100 Calcium 8.9 Total Bilirubin 0.8 AST 19 ALT 14 Alkaline Phosphatase 45 Total Protein 6.0 L Albumin 3.7 Discharge Plan Discharge Attending physician on discharge: Sarmad Maria Consulting providers: Femi Dougherty; Kacie Saab Discharging Clinician: Dory Hager Patient Disposition: Home, Self-Care Activity: may shower Diet: heart healthy Discharge Instructions: You were admitted for feeling of dizziness. Neurology saw you- no acute interventiosn were done. MRI: No acute intracranial process - Echo: LVEF 60-65% with grade I diastolic dysfunction Cardiology consulted, no additional cardiology work up recommended. Pravastatin 40mg daily. Please change positions slowly as you are fall and bleeding risk. Patient Instructions: Antibiotic Form, Apixaban (By mouth) Patient Language: Nicaraguan Stand Alone Forms: General Discharge Information Follow-up/Referrals: Femi Dougherty MD [Physician] - 2 Weeks Christopher Hernández MD [Primary Care Provider] - 2 Weeks Discharge Medications: New pravastatin 20 mg Tablet 40 mg PO HS Qty: 90 0RF Continued Eliquis 5 mg tablet 5 mg PO BID Qty: 2 0RF flecainide 50 mg tablet 50 mg PO Q12H finasteride 5 mg tablet 5 mg PO ONCE lisinopril 20 mg tablet 40 mg PO DAILY carvedilol 6.25 mg tablet 6.25 mg PO BID Rx Instructions: must administer with a meal/food Prolia 60 mg/mL syringe 60 mg subcut [id number] Rx Instructions: Next due on 01/21/22 pantoprazole 40 mg tablet,delayed release (DR/EC) 40 mg PO QAM Qty: 90 0RF tizanidine 2 mg tablet 2 mg PO TID PRN (Reason: muscle spasticity) Qty: 20 0RF ascorbic acid (vitamin C) 1,000 mg Tablet 1 g PO DAILY cholecalciferol (vitamin D3) 125 mcg (5,000 unit) Capsule 125 mcg PO HS Centrum Silver Women 8 mg iron-400 mcg-300 mcg Tablet 1 tablet PO DAILY levothyroxine 25 mcg tablet See Rx Instructions .ROUTE .COMPLEX Qty: 90 3RF Dose Instruction: TAKE 1 TABLET BY MOUTH DAILY Rx Instructions: TAKE 1 TABLET BY MOUTH DAILY Discontinued pravastatin 20 mg tablet 20 mg PO HS Qty: 90 3RF Date of admission: 06/05/24 16:04 Primary Care Provider: Christopher Hernández Admitting Provider: Gregorio Whitt Attending physician on admission: Anastacia Fair Condition: Stable Quality VTE Prophylaxis VTE prophylaxis: mechanical ordered and pharmacologic ordered Hospitalist MIPS Heart Failure (Exclusion) Patient has history of Heart Transplant or Left Ventricular Assistive Device?: No IF YES, STOP HERE Heart Failure (Qualifier) Patient has current or prior documentation of LVEF less than or equal to 40%, or mod/servere depressed LVSF?: No IF NO, STOP HERE
--- NOTE | 2024-06-08 08:18 | WPDCDIQUERY2 ---
CDI Query Clarification Request Please clarify if TIA has been ruled in or ruled out. The chart reflects the following: ER documentation 06/04 Clinical Impression: Brain TIA, Frontal headache H&P: Assessment and plan (1) Dizziness: Code(s): R42 - Dizziness and giddiness Status: Acute Assessment and Plan: Neurology consulted Plan for MRI tomorrow Telemetry monitoring Neuro checks check Permissive hypertension Echo with bubble Neurology 06/05: Plan 1. TIA 2. Normal MRI of the brain 3. Left thyroid 4mm nodule not clinically significant 4. 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 Severe cervical spondylosis 6. History of chronic atrial fibrillation for which patient is already anticoagulated with apixaban 5mg b.i.d. along with the other medications. Considering the age of the patient will continue the anticoagulation as such but needs to be explained to the family about the moderate arterial stenosis Could be 1 of the contributing factor. Orthostasis is being checked while she is in the hospital and pravastatin can be changed to40mg daily. Cardiology 06/06: Assessment and plan (1) Brain TIA: Code(s): G45.9 - Transient cerebral ischemic attack, unspecified Status: Acute Plan 1. Possible PFO on bubble study 2. TIA 3. Paroxysmal atrial fibrillation 4. Chronic heart failure with preserved LVEF 5. Hypertension 6. Hyperlipidemia PLAN: -Bubble study shows possible PFO, for which we are consulted. This is most likely an incidental finding in her case. Brain MRI is negative for acute CVA. She is being treated for a TIA. PFO closure is not indicated in TIA; only indicated for an embolic CVA. In addition, even if she did have a CVA, not a candidate for PFO closure due to her age and need for anticoagulation. Therefore, no additional cardiac workup/testing recommended. -Continue Eliquis, Coreg, Flecainide for her PAF. -Continue other home cardiac meds. -Can follow up with her primary lump inspector, Dr. Guzman. MRI: IMPRESSION: 1. No acute intracranial process. 2. No enhancing lesions seen. 3. Disc protrusion at the level of C3-C4. Treatment: Eliquis 5mg po q12hr Carvediol 6.25mg po q 12 hr Lisinopril 40 mg po daily Pravastatin sodium 40 mg HS <Analilia Cornejo RN - Last Filed: 06/08/24 08:27> Provider Comments tia <Dory Hager APRN - Last Filed: 06/08/24 16:06>
== END 2024-06-07 15:45 | disposition home or self-care (01) | DRG 69 ==
LOC: ANHED 17:14 → ANH3MEDSUR 18:19 → ANH2MED 20:05
PROVIDERS: Nurse Practitioner Gerontology; Student in an Organized Health Care Education/Training Program; Admitting Provider Internal Medicine; Emergency Provider Emergency Medicine; PCP Family Medicine; Visit Provider Nurse Practitioner
DX: G45.9 Transient cerebral ischemic attack, unspecified (principal); I50.32 Chronic diastolic (congestive) heart failure; Q21.12 Patent foramen ovale; I65.02 Occlusion and stenosis of left vertebral artery; I95.1 Orthostatic hypotension; I11.0 Hypertensive heart disease with heart failure; I48.0 Paroxysmal atrial fibrillation; E03.9 Hypothyroidism, unspecified; E78.00 Pure hypercholesterolemia, unspecified; M47.812 Spondylosis without myelopathy or radiculopathy, cervical region; Z87.891 Personal history of nicotine dependence; Z79.01 Long term (current) use of anticoagulants
CPT/HCPCS: 36415; 70450; 70496; 70498; 70553; 71045; 80048; 80053; 80061; 81003; 83735; 84443; 85025; 85027; 85610; 85730; 93005; 96375; 97161; 97165; 99285; A9270; A9579; C8929; G0378; Q9957; Q9967

== ENCOUNTER 2024-06-12 13:20 | Outpatient (CLI) | payer MEDICARE, SELFPAY ==
--- NOTE | ~2024-06-12 | DEXA_ITS ---
Bone Density Report Name: ROBERT STEPHENS Age: 84 Sex: Female Ethnicity: White Date of : 1940 Indication: postmenopausal; screening for osteoporosis; parental hip fracture; height loss; Referring Provider: HILARIO GARCIA Study: Bone densitometry was performed. Exam Date: June 12, 2024 Accession number: [id number] Bone Density: Region BMD T-score Z-score Classification AP Spine(L1-L4) 1.003 -0.4 2.5 Normal Femoral Neck (Left) 0.611 -2.1 0.4 Osteopenia Total Hip (Left) 0.879 -0.5 1.8 Normal Femoral Neck (Right) 0.632 -2.0 0.6 Osteopenia Total Hip (Right) 0.875 -0.6 1.8 Normal Total Hip Mean 0.877 -0.6 1.8 Normal World Health Organization criteria for BMD impression classify patients as: Normal (T-score at or above -1.0), Osteopenia (T-score between -1.0 and -2.5), or Osteoporosis (T-score at or below -2.5). 10-year Fracture Risk(1): Major Osteoporotic Fracture 30% Hip Fracture 20% Reported Risk Factors: [place] (), Neck BMD=0.611, BMI=28.7, parental fracture (1) FRAX(R) Version 3.08. Fracture probability calculated for an untreated patient. Fracture probability may be lower if the patient has received treatment. Clinical Information Provided by Patient: Parent has had a hip fracture Has used the following medications: Prolia (i.e. denosumab), Vitamin D Patient maximum height was 69.0 Menopause Age: 49 Drinks caffeinated beverages Onset of menses at age 15 Number of children 3 Impression: The patient has low bone mass, based on the Left Femoral Neck T-score. The patient has an estimated ten-year risk of hip fracture of 20% and an estimated ten-year risk of major fracture of 30%, based on the WHO FRAX algorithm. The patient has risk factors, including: parental hip fracture. Discussion: BONE DENSITY IS LOW AT ONE OR MORE SKELETAL SITES. THE PATIENT'S BMD AND CLINICAL RISK FACTORS CONTRIBUTE TO THIS PATIENT'S HIGH RISK OF FRACTURE. This patient's lowest T-score is low at one or more skeletal sites. It meets the World Health Organization's (WHO) criteria for ?low bone mass? (T-score between -1.0 and -2.5). The patient's 10-year risk of hip fracture and 10 year risk of a major osteoporotic fracture as calculated by FRAX exceeds the threshold where pharmacological therapy is recommended by the National Osteoporosis Foundation (NOF). However, all treatment decisions require clinical judgment and consideration of individual patient factors, including patient preferences, comorbidities, previous drug use, risk factors not captured in the FRAX model (e.g., frailty, falls, vitamin D deficiency, increased bone turnover, interval significant decline in bone density) and possible under or overestimation of fracture risk by FRAX. The patient should follow a healthful lifestyle (good nutrition with adequate calcium and vitamin D, and appropriate weight-bearing exercise). Follow-Up: Consider a repeat BMD and Vertebral Fracture Assessment (VFA) exam in 2 years or sooner if medically necessary, to reassess this patient's status. Reported by: MANINDER on 06/12/2024 2:10:00 PM. Reviewed, dictated and finalized at location ARosie GAMBLE
--- OUTSIDE RECORDS SUMMARY | 2024-06-12 14:34 | XMS_ITS | Referral Summary ---
Author [place] [facility] [place] [address] Address [address] [place] [address] Care Team Providers Care Water Quality Specialist Name Role Phone Christopher Hernández MD Primary Care Provider + [phone] Allergies Active Allergy Reactions Criticality Noted Date Comments Codeine Medications pravastatin (PRAVACHOL) 20 mg tablet take 1 Tablet by oral route every day 0 0 6 Active multivitamin tablet tabletIndicatio ns:Vitamin Deficiency Prevention Take 1 tablet by mouth daily Active levothyroxine (SYNTHROID) 25 mcg tablet Take 1 tablet (25 mcg total) by mouth etiology teacher before breakfast [address] [...] on file 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
--- OUTSIDE RECORDS SUMMARY | 2024-06-12 14:34 | XMS_ITS | Clinical Summary ---
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
--- OUTSIDE RECORDS SUMMARY | 2024-06-12 14:34 | XMS_ITS | Clinical Summary ---
Author Organization [facility] [place] [address] Address [address] [place] [address] Care Team Providers Care Ceramics Test Engineer Name Role Phone Christopher Hernández MD Primary Care Provider + [phone] Allergies Active Allergy Reactions Criticality Noted Date Comments Codeine Medications pravastatin (PRAVACHOL) 20 mg tablet take 1 Tablet by oral route every day 0 0 6 Active multivitamin tablet tabletIndicatio ns:Vitamin Deficiency Prevention Take 1 tablet by mouth daily Active levothyroxine (SYNTHROID) 25 mcg tablet Take 1 tablet (25 mcg total) by mouth speech therapist early intervention before breakfast [address] (PROTONIX) [...] on file 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
--- OUTSIDE RECORDS SUMMARY | 2024-06-12 14:34 | XMS_ITS | Clinical Summary ---
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
== END 2024-06-12 13:21 | disposition home or self-care (01) ==
LOC: ANHIMG 13:21
PROVIDERS: PCP Family Medicine; Visit Provider Obstetrics & Gynecology Gynecology
DX: M81.0 Age-related osteoporosis without current pathological fracture (principal); Z78.0 Asymptomatic menopausal state; M85.852 Other specified disorders of bone density and structure, left thigh; M85.851 Other specified disorders of bone density and structure, right thigh
CPT/HCPCS: 77080

== ENCOUNTER 2024-07-28 10:42 | Outpatient (CLI) | payer MEDICARE, SELFPAY ==
--- NOTE | ~2024-07-28 | MM_ITS ---
EXAMINATION: MM screening carine BI w roderick HISTORY: Screening TECHNIQUE: Craniocaudal and mediolateral oblique 3-D tomosynthesis images were obtained and synthetic 2-D images were generated. CAD analysis was submitted and interpreted. COMPARISON: Comparison to multiple prior studies sequentially, with oldest reviewed study dated 04/2020. BREAST PARENCHYMAL COMPOSITION: Not dense: There are scattered areas of fibroglandular density. FINDINGS: There is no evidence of suspicious mass, calcification, or architectural distortion to sugg est malignancy in either breast. There has been no suspicious interval change. IMPRESSION: 1. No mammographic evidence of malignancy. 2. Recommend routine screening mammography in one year. BI-RADS Category 1: Negative Reviewed, dictated and finalized at location B.
== END 2024-07-28 10:43 | disposition home or self-care (01) ==
PROVIDERS: PCP Family Medicine; Visit Provider Obstetrics & Gynecology Gynecology
DX: Z12.31 Encounter for screening mammogram for malignant neoplasm of breast (principal)
CPT/HCPCS: 77063; 77067